=== PATIENT | female | born 1950 | race American Indian/Alaskan Native ===

== ENCOUNTER 2017-01-13 00:59 | Emergency (ER) | payer BC, OTHER ==
[2017-01-13 01:28] VITALS: BP 129/86
[2017-01-13] MEDS ORDERED: Morphine 2 MG/ML Syringe IVPUSH ONE (01:44)
[2017-01-13 01:49] LABS: CHLORIDE,CL 107 mmol/L (101-111); SODIUM,NA 139 mmol/L (135-145)
[2017-01-13] MEDS ORDERED: Ondansetron 4 MG/2 ML SDV IV ONE (01:50)
--- NOTE | 2017-01-13 02:14 | EDM.PDOC ---
ED HPI GENERAL MEDICAL PROBLEM - General Chief Complaint: Chest Pain Stated Complaint: CHEST PAIN [id number] Time Seen by Provider: 01/13/17 01:15 Source of Information: Reports: Patient History Limitations: Reports: No Limitations - History of Present Illness INITIAL COMMENTS - FREE TEXT/NARRATIVE: ED with complaint of SOB cough and chestpain starting 8pm tonight with left sided facial numbness radiating to upper left arm. Relate prior cerebral aneurysm repair with "clips and fistula in 2014. HTN but has not been on medication since surgery in 2014. No fever or chills. Describes chest pain as starting sharp on left lateral radiating to anterior now rating 4/10 as pressure heaviness. No nausea. Non smoker. No hx asthma. Onset: Today (1999) Left Anterior Chest Pain Score (Numeric/FACES): 6 - Related Data Allergies Allergy/AdvReac Type Severity Reaction Status Date / Time codeine Allergy Nausea Verified 01/13/17 01:31 oseltamivir phosphate Allergy Hallucinati Verified 01/13/17 01:31 [From Tamiflu] ons Home Meds: Home Meds Aspirin [Halfprin] 81 mg PO DAILY 09/08/13 [History] Diclofenac Sodium [Voltaren 1%] 1 applic TOP BID PRN 09/08/13 [History] Diltiazem [Tiazac] 180 mg PO DAILY 09/08/13 [History] Meclizine [Antivert] 25 mg PO TID PRN 09/08/13 [History] Multivitamin with Minerals [Multiple Vitamin] 1 tab PO DAILY 09/08/13 [History] Omeprazole 20 mg PO DAILY 09/08/13 [History] Cetirizine HCl [Zyrtec] 10 mg PO DAILY PRN 01/05/14 [History] Ranitidine HCl 150 mg PO BID 01/06/14 [History] Past Medical History Cardiovascular History: Reports: Aneurysm, High Cholesterol, Hypertension - Past Surgical History Other Cardiovascular Surgeries/Procedures: angio seal Other Neurological Surgeries/Procedures: Craniotomy- November 2014 Social & Family History - Tobacco Use Smoking Status *Q: Former Smoker Years of Tobacco use: 40 Used Tobacco, but Quit: No Second Hand Smoke Exposure: No - Caffeine Use Caffeine Use: Reports: Soda - Alcohol Use Days Per Week of Alcohol Use: 0 - Recreational Drug Use Recreational Drug Use: No ED ROS GENERAL - Review of Systems Review Of Systems: See Below Constitutional: Reports: No Symptoms HEENT: Reports: No Symptoms Respiratory: Reports: Shortness of Breath, Cough Cardiovascular: Reports: Chest Pain GI/Abdominal: Reports: No Symptoms : Reports: No Symptoms Musculoskeletal: Reports: No Symptoms Skin: Reports: No Symptoms Neurological: Reports: No Symptoms ED EXAM, NEURO - Physical Exam Exam: See Below Exam Limited By: No Limitations General Appearance: Alert, Anxious Eye Exam: Bilateral Eye: EOMI, PERRL (4mm) Ears: Normal External Exam, Normal TMs Nose: Normal Inspection Throat/Mouth: Normal Inspection Head Exam: Atraumatic, Normocephalic Neck: Normal Inspection, Full Range of Motion. No: Lymphadenopathy (L), Lymphadenopathy (R) Respiratory/Chest: No Respiratory Distress, Lungs Clear, Normal Breath Sounds, Other Cardiovascular: Normal Peripheral Pulses, Regular Rate, Rhythm GI/Abdominal: Normal Bowel Sounds, Soft, Non-Tender Neurological: Alert, Normal Mood/Affect, Normal Plantar Flexion, Normal Gait, Normal Reflexes, Oriented x 3, Other (decreased facial sensation left cheeck and loer lip, left chin, appearance of slight facial droop corner of left mouth , though no family available to compare. sppech generally clear. extremity strength equal without drift. ). No: CN II-XII Intact, No Motor/Sensory Deficits EKG INTERPRETATION Rhythm: NSR Course - Vital Signs Last Recorded V/S: Last Vital Signs Temp 97.1 F 01/13/17 01:12 Pulse 72 01/13/17 01:12 Resp 20 01/13/17 01:12 BP 129/86 01/13/17 01:12 Pulse Ox 100 01/13/17 01:12 - Orders/Labs/Meds Orders: Active Orders 24 hr Category Date Time Status EKG 12 Lead [EKG Documentation Completion] [RC] URGENT Care 01/13/17 01:01 Active Labs: Laboratory Tests 01/13/17 01/13/17 01/13/17 Range/Units 01:15 01:15 01:15 WBC 7.3 (5.0-10.0) 10^3/uL RBC 4.47 (4.2-5.4) 10^6/uL Hgb 13.4 (12.0-16.0) g/dL Hct 41.6 (37.0-47.0) % MCV 93.1 (80-100) fL MCH 30.0 (27.0-34.0) pg MCHC 32.2 L (33.0-35.0) g/dL Plt Count 207 (150-450) 10^3/uL Neut % (Auto) 41.6 L (42.2-75.2) % Lymph % (Auto) 47.7 (20.5-50.1) % [place] % (Auto) 9.0 H (2-8) % Eos % (Auto) 1.6 (1.0-3.0) % Baso % (Auto) 0.1 (0.0-1.0) % PT (9.0-12.0) SEC INR (0.9-1.2) D-Dimer, Quantitative 275 (0-400) ng/mL Sodium 139 (135-145) mmol/L Potassium 4.2 (3.6-5.0) mmol/L Chloride 107 (101-111) mmol/L Carbon Dioxide 26.0 (21.0-31.0) mmol/L Anion Gap 10.2 BUN 15 (7-18) mg/dL Creatinine 0.7 (0.6-1.3) mg/dL Est Cr Clr Drug Dosing 71.29 mL/min Estimated GFR (MDRD) > 60 BUN/Creatinine Ratio 21.42 Glucose 94 (74-105) mg/dL POC Glucose (70-105) mg/dl Calcium 9.5 (8.4-10.2) mg/dl Total Bilirubin 0.3 (0.2-1.0) mg/dL AST 23 (10-42) IU/L ALT 19 (10-60) IU/L Alkaline Phosphatase 70 (42-121) IU/L CK-MB (CK-2) (0.4-4.7) ng/mL Troponin I < 0.02 (0.00-0.02) ng/ml B-Natriuretic Peptide 11 (0-100) pg/ml Total Protein 7.1 (6.7-8.2) g/dl Albumin 3.9 (3.2-5.5) g/dl Globulin 3.2 Albumin/Globulin Ratio 1.22 Amylase 41 (28-100) U/L Lipase 23 (22-51) U/L Urine Color (YELLOW) Urine Appearance (CLEAR) Urine pH (5.0-9.0) Ur Specific [place] (1.005-1.030) Urine Protein (NEGATIVE) Urine Glucose (UA) (NEGATIVE) Urine Ketones (NEGATIVE) Urine Occult Blood (NEGATIVE) Urine Nitrite (NEGATIVE) Urine Bilirubin (NEGATIVE) Urine Urobilinogen (0.2-1.0) mg/dL Ur Leukocyte Esterase (NEGATIVE) Urine RBC /HPF Urine WBC (0-5/HPF) /HPF Ur Epithelial Cells /HPF Urine Bacteria (0-FEW/HPF) /HPF 01/13/17 01/13/17 01/13/17 Range/Units 01:15 01:15 02:07 WBC (5.0-10.0) 10^3/uL RBC (4.2-5.4) 10^6/uL Hgb (12.0-16.0) g/dL Hct (37.0-47.0) % MCV (80-100) fL MCH (27.0-34.0) pg MCHC (33.0-35.0) g/dL Plt Count (150-450) 10^3/uL Neut % (Auto) (42.2-75.2) % Lymph % (Auto) (20.5-50.1) % [place] % (Auto) (2-8) % Eos % (Auto) (1.0-3.0) % Baso % (Auto) (0.0-1.0) % PT 9.9 (9.0-12.0) SEC INR 1.0 (0.9-1.2) D-Dimer, Quantitative (0-400) ng/mL Sodium (135-145) mmol/L Potassium (3.6-5.0) mmol/L Chloride (101-111) mmol/L Carbon Dioxide (21.0-31.0) mmol/L Anion Gap BUN (7-18) mg/dL Creatinine (0.6-1.3) mg/dL Est Cr Clr Drug Dosing mL/min Estimated GFR (MDRD) BUN/Creatinine Ratio Glucose (74-105) mg/dL POC Glucose 87 (70-105) mg/dl Calcium (8.4-10.2) mg/dl Total Bilirubin (0.2-1.0) mg/dL AST (10-42) IU/L ALT (10-60) IU/L Alkaline Phosphatase (42-121) IU/L CK-MB (CK-2) 1.70 (0.4-4.7) ng/mL Troponin I (0.00-0.02) ng/ml B-Natriuretic Peptide (0-100) pg/ml Total Protein (6.7-8.2) g/dl Albumin (3.2-5.5) g/dl Globulin Albumin/Globulin Ratio Amylase (28-100) U/L Lipase (22-51) U/L Urine Color (YELLOW) Urine Appearance (CLEAR) Urine pH (5.0-9.0) Ur Specific [place] (1.005-1.030) Urine Protein (NEGATIVE) Urine Glucose (UA) (NEGATIVE) Urine Ketones (NEGATIVE) Urine Occult Blood (NEGATIVE) Urine Nitrite (NEGATIVE) Urine Bilirubin (NEGATIVE) Urine Urobilinogen (0.2-1.0) mg/dL Ur Leukocyte Esterase (NEGATIVE) Urine RBC /HPF Urine WBC (0-5/HPF) /HPF Ur Epithelial Cells /HPF Urine Bacteria (0-FEW/HPF) /HPF 01/13/17 Range/Units 02:18 WBC (5.0-10.0) 10^3/uL RBC (4.2-5.4) 10^6/uL Hgb (12.0-16.0) g/dL Hct (37.0-47.0) % MCV (80-100) fL MCH (27.0-34.0) pg MCHC (33.0-35.0) g/dL Plt Count (150-450) 10^3/uL Neut % (Auto) (42.2-75.2) % Lymph % (Auto) (20.5-50.1) % [place] % (Auto) (2-8) % Eos % (Auto) (1.0-3.0) % Baso % (Auto) (0.0-1.0) % PT (9.0-12.0) SEC INR (0.9-1.2) D-Dimer, Quantitative (0-400) ng/mL Sodium (135-145) mmol/L Potassium (3.6-5.0) mmol/L Chloride (101-111) mmol/L Carbon Dioxide (21.0-31.0) mmol/L Anion Gap BUN (7-18) mg/dL Creatinine (0.6-1.3) mg/dL Est Cr Clr Drug Dosing mL/min Estimated GFR (MDRD) BUN/Creatinine Ratio Glucose (74-105) mg/dL POC Glucose (70-105) mg/dl Calcium (8.4-10.2) mg/dl Total Bilirubin (0.2-1.0) mg/dL AST (10-42) IU/L ALT (10-60) IU/L Alkaline Phosphatase (42-121) IU/L CK-MB (CK-2) (0.4-4.7) ng/mL Troponin I (0.00-0.02) ng/ml B-Natriuretic Peptide (0-100) pg/ml Total Protein (6.7-8.2) g/dl Albumin (3.2-5.5) g/dl Globulin Albumin/Globulin Ratio Amylase (28-100) U/L Lipase (22-51) U/L Urine Color Light yellow (YELLOW) Urine Appearance Clear (CLEAR) Urine pH 7.0 (5.0-9.0) Ur Specific [place] 1.010 (1.005-1.030) Urine Protein Negative (NEGATIVE) Urine Glucose (UA) Negative (NEGATIVE) Urine Ketones Negative (NEGATIVE) Urine Occult Blood Trace-lysed H (NEGATIVE) Urine Nitrite Negative (NEGATIVE) Urine Bilirubin Negative (NEGATIVE) Urine Urobilinogen 0.2 (0.2-1.0) mg/dL Ur Leukocyte Esterase Negative (NEGATIVE) Urine RBC 0-5 /HPF Urine WBC 0-5 (0-5/HPF) /HPF Ur Epithelial Cells Few /HPF Urine Bacteria Occasional (0-FEW/HPF) /HPF Meds: Medications Discontinued Medications Generic Name Dose Route Start Last Admin Trade Name Bebetoq PRN Reason Stop Dose Admin Morphine Sulfate 2 mg 01/13/17 01:44 01/13/17 01:57 Morphine IVPUSH 01/13/17 01:45 2 mg ONETIME ONE Administration Ondansetron HCl 4 mg 01/13/17 01:50 01/13/17 01:54 Zofran IV 01/13/17 01:51 4 mg ONETIME ONE Administration - Radiology Interpretation Free Text/Narrative:: head CT negative CXR no acute process. - Re-Assessments/Exams Free Text/Narrative Re-Assessment/Exam: 01/13/17 06:[address] [facility] neuro. No critical concern. TC consult Dr. Chavira would accept patient if available CT angio. Not vailable at this facility. Dr. Ryan Swisher hospitalist accepting of patient. Tx vial LRAS. Stable. Chest pain localized to left lateral breast. Cough resolved. Respirations easy non labored. Departure - Departure Time of Disposition: 03:30 Disposition: DC/Tfer to Acute Hospital 02 Condition: Undetermined Clinical Impression: Atypical chest pain, Facial numbness, Hx of cerebral aneurysm repair - Discharge Information Referrals: PCP,Unobtain [Primary Care Provider] - Forms: ED Department Discharge - My Orders Last 24 Hours: My Active Orders 01/13/17 01:01 EKG 12 Lead [EKG Documentation Completion] [RC] URGENT - Assessment/Plan Last 24 Hours: My Active Orders 01/13/17 01:01 EKG 12 Lead [EKG Documentation Completion] [RC] URGENT
--- NOTE | 2017-01-16 12:18 | EKG ---
01/13/2017 - ELENA WAGNER - FINDINGS: A 12-lead EKG shows normal sinus rhythm with a heart rate of 66. Right bundle-branch block noted. No significant ST elevation or ST depression noted. [facility] /[id number]
== END 2017-01-13 03:31 ==
LOC: DL.ED 00:59
DX: R07.89 Other chest pain (principal); R20.0 Anesthesia of skin; Z88.5 Allergy status to narcotic agent; Z79.82 Long term (current) use of aspirin; Z79.899 Other long term (current) drug therapy; Z87.891 Personal history of nicotine dependence; Z86.79 Personal history of other diseases of the circulatory system
CPT/HCPCS: 36415; 70450; 71010; 80053; 81001; 82150; 82553; 82962; 83690; 83880; 84484; 85025; 85379; 85610; 93005; 96374; 96375; 99285; J2270; J2405; Q9967

== ENCOUNTER 2017-02-07 12:45 | Emergency (ER) | payer BC, MEDICAID ==
--- NOTE | 2017-02-07 13:04 | EDM.PDOC ---
ED HPI GENERAL MEDICAL PROBLEM - General Chief Complaint: ENT Problem Stated Complaint: SICK X 2 DAYS. Time Seen by Provider: 02/07/17 13:02 Source of Information: Reports: Patient, Old Records, RN, RN Notes Reviewed History Limitations: Reports: No Limitations - History of Present Illness INITIAL COMMENTS - FREE TEXT/NARRATIVE: C/O sudden onset of sore throat, fever, chills, frontal headache, and nausea with vomiting 2 days ago. Today could not keep any food or liquids down without vomiting. Pt is unsure if she was exposed to strep throat or not. Denies neck pain or stiffness, abdominal pain, cough, shortness of breath or chest pain. Onset: Sudden Onset Date: 02/05/17 Duration: Constant Location: Reports: Head, Chest, Other (throat) Quality: Reports: Ache, Burning Severity: Moderate Improves with: Reports: None Worsens with: Reports: None Context: Reports: Sick Contact Associated Symptoms: Reports: No Other Symptoms Treatments [employer] INST[employer]ER: Reports: Aspirin, NSAIDS, Other Medication(s) - Related Data Allergies Allergy/AdvReac Type Severity Reaction Status Date / Time codeine Allergy Nausea Verified 01/13/17 01:31 oseltamivir phosphate Allergy Hallucinati Verified 01/13/17 01:31 [From Tamiflu] ons Home Meds: Home Meds Aspirin [Halfprin] 81 mg PO DAILY 09/08/13 [History] Diltiazem [Tiazac] 180 mg PO DAILY 09/08/13 [History] Meclizine [Antivert] 25 mg PO TID PRN 09/08/13 [History] Omeprazole 20 mg PO DAILY 09/08/13 [History] Past Medical History HEENT History: Reports: Allergic Rhinitis Cardiovascular History: Reports: High Cholesterol, Hypertension Gastrointestinal History: Reports: GERD Neurological History: Reports: Cerebral Aneurysms - Past Surgical History Other Cardiovascular Surgeries/Procedures: angio seal Other Neurological Surgeries/Procedures: Craniotomy- November 2014 Social & Family History - Family History Family Medical History: Noncontributory - Tobacco Use Smoking Status *Q: Former Smoker Years of Tobacco use: 40 Used Tobacco, but Quit: No Second Hand Smoke Exposure: No - Caffeine Use Caffeine Use: Reports: Soda - Alcohol Use Days Per Week of Alcohol Use: 0 - Recreational Drug Use Recreational Drug Use: No - Living Situation & Occupation Living situation: Reports: with Family ED ROS ENT - Review of Systems Review Of Systems: ROS reveals no pertinent complaints other than HPI. ED EXAM, ENT - Physical Exam Exam: See Below Exam Limited By: No Limitations General Appearance: Alert, WD/WN, No Apparent Distress, Other (uncomfortable, but non-toxic appearing) Eye Exam: Bilateral Eye: Normal Inspection Ears: Normal External Exam, Normal Canal, Hearing Grossly Normal, Normal TMs Nose: Normal Inspection, Normal Mucousa, No Blood Mouth/Throat: Normal Gums, Normal Lips, Normal Teeth, Pharyngeal Erythema. No: Tonsillar Exudates Head: Atraumatic, Normocephalic Neck: Normal Inspection, Supple, Non-Tender, Full Range of Motion. No: Lymphadenopathy (L), Lymphadenopathy (R) Respiratory/Chest: No Respiratory Distress, Lungs Clear, Normal Breath Sounds, No Accessory Muscle Use, Chest Non-Tender Cardiovascular: Normal Peripheral Pulses, Regular Rate, Rhythm, No Edema, No Gallop, No JVD, No Murmur, No Rub GI/Abdominal: Normal Bowel Sounds, Soft, Non-Tender, No Distention, No Abnormal Bruit (Female) Exam: Deferred Rectal (Female) Exam: Deferred Back: Normal Inspection Extremities: Normal Inspection, Normal Range of Motion, Non-Tender, No Pedal Edema, Normal Capillary Refill Neurological: Alert, Oriented, CN II-XII Intact, Normal Cognition, Normal Gait, No Motor/Sensory Deficits Psychiatric: Normal Affect, Normal Mood Skin: Warm, Dry, Intact, Normal Color, No Rash Course - Vital Signs Last Recorded V/S: Last Vital Signs Temp 37.0 C 02/07/17 12:50 Pulse 94 02/07/17 12:50 Resp 28 H 02/07/17 12:50 BP 113/70 02/07/17 12:50 Pulse Ox 97 02/07/17 12:50 - Orders/Labs/Meds Orders: Active Orders 24 hr Category Date Time Status Peripheral IV Care [RC] . DIRECTED Care 02/07/17 14:05 Active CULTURE STREP A CONFIRMATION [] Stat Lab 02/07/17 13:00 Results STREP SCRN A RAPID W CULT CONF [] Stat Lab 02/07/17 13:00 Results Sodium Chloride 0.9% [Normal Saline] 1,000 ml Med 02/07/17 14:03 Active IV .BOLUS Sodium Chloride 0.9% [Saline Flush] Med 02/07/17 14:04 Active 10 ml FLUSH ASDIRECTED PRN Peripheral IV Insertion Adult [OM.PC] Stat Oth 02/07/17 14:03 Ordered Medication Orders Sodium Chloride (Normal Saline) 1,000 mls @ 999 mls/hr IV .BOLUS ONE Stop: 02/07/17 15:03 Last Admin: 02/07/17 14:29 Dose: 999 mls/hr Sodium Chloride (Saline Flush) 10 ml FLUSH ASDIRECTED PRN PRN Reason: Keep Vein Open Labs: Laboratory Tests 02/07/17 02/07/17 Range/Units 14:11 14:11 WBC 12.0 H (5.0-10.0) 10^3/uL RBC 4.78 (4.2-5.4) 10^6/uL Hgb 14.2 (12.0-16.0) g/dL Hct 44.4 (37.0-47.0) % MCV 92.9 (80-100) fL MCH 29.7 (27.0-34.0) pg MCHC 32.0 L (33.0-35.0) g/dL Plt Count 203 (150-450) 10^3/uL Neut % (Auto) 79.8 H (42.2-75.2) % Lymph % (Auto) 11.7 L (20.5-50.1) % [place] % (Auto) 8.0 (2-8) % Eos % (Auto) 0.3 L (1.0-3.0) % Baso % (Auto) 0.2 (0.0-1.0) % Sodium 137 (135-145) mmol/L Potassium 4.7 (3.6-5.0) mmol/L Chloride 101 (101-111) mmol/L Carbon Dioxide 26.0 (21.0-31.0) mmol/L Anion Gap 14.7 BUN 14 (7-18) mg/dL Creatinine 0.8 (0.6-1.3) mg/dL Est Cr Clr Drug Dosing 61.35 mL/min Estimated GFR (MDRD) > 60 BUN/Creatinine Ratio 17.50 Glucose 108 H (74-105) mg/dL Calcium 9.9 (8.4-10.2) mg/dl Total Bilirubin 0.8 (0.2-1.0) mg/dL AST 30 (10-42) IU/L ALT 62 H (10-60) IU/L Alkaline Phosphatase 79 (42-121) IU/L Total Protein 8.2 (6.7-8.2) g/dl Albumin 4.1 (3.2-5.5) g/dl Globulin 4.1 Albumin/Globulin Ratio 1.00 Influenza A/B: Negative Rapid Strep: Negative Meds: Medications Generic Name Dose Route Start Last Admin Trade Name Cecil PRN Reason Stop Dose Admin Sodium Chloride 1,000 mls @ 999 mls/hr 02/07/17 14:03 02/07/17 14:29 Normal Saline IV 02/07/17 15:03 999 mls/hr .BOLUS ONE Administration Sodium Chloride 10 ml 02/07/17 14:04 Saline Flush FLUSH ASDIRECTED PRN Keep Vein Open Discontinued Medications Generic Name Dose Route Start Last Admin Trade Name Cecil PRN Reason Stop Dose Admin Ceftriaxone Sodium 1 gm 02/07/17 14:04 02/07/17 14:29 Rocephin IVPUSH 02/07/17 14:05 1 gm ONETIME ONE Administration Ondansetron HCl 4 mg 02/07/17 14:03 02/07/17 14:29 Zofran IV 02/07/17 14:04 4 mg ONETIME ONE Administration Departure - Departure Time of Disposition: 15:04 Disposition: Home, Self-Care 01 Condition: Good Clinical Impression: Pharyngitis Qualifiers: Pharyngitis/tonsillitis etiology: unspecified etiology Qualified Code(s): J02.9 - Acute pharyngitis, unspecified - Discharge Information Instructions: Pharyngitis Forms: ED Department Discharge Additional Instructions: Rx: Promethazine 25mg *Do not drive while under the influence of this medication , may cause drowsiness. Rx: Z-Calixto 250mg Clear liquid diet until nausea resolves, then advance to soft bland diet as tolerated. Follow up in clinic if not improving in 2 days. Return to ER if worse at any time. - My Orders Last 24 Hours: My Active Orders 02/07/17 13:00 CULTURE STREP A CONFIRMATION [RM] Stat STREP SCRN A RAPID W CULT CONF [RM] Stat 02/07/17 14:03 Sodium Chloride 0.9% [Normal Saline] 1,000 ml IV .BOLUS Peripheral IV Insertion Adult [OM.PC] Stat 02/07/17 14:04 Sodium Chloride 0.9% [Saline Flush] 10 ml FLUSH ASDIRECTED PRN 02/07/17 14:05 Peripheral IV Care [RC] . DIRECTED - Assessment/Plan Last 24 Hours: My Active Orders 02/07/17 13:00 CULTURE STREP A CONFIRMATION [] Stat STREP SCRN A RAPID W CULT CONF [RM] Stat 02/07/17 14:03 Sodium Chloride 0.9% [Normal Saline] 1,000 ml IV .BOLUS Peripheral IV Insertion Adult [OM.PC] Stat 02/07/17 14:04 Sodium Chloride 0.9% [Saline Flush] 10 ml FLUSH ASDIRECTED PRN 02/07/17 14:05 Peripheral IV Care [RC] . DIRECTED
[2017-02-07] MEDS ORDERED: Sodium Chloride 0.9% 1,000 ML IV ONE (14:03)
[2017-02-07] MEDS ORDERED: Ondansetron 4 MG/2 ML SDV IV ONE (14:03)
[2017-02-07] MEDS ORDERED: Sodium Chloride 0.9% 10 ML Syringe FLUSH PRN (14:04)
[2017-02-07] MEDS ORDERED: cefTRIAXone 1 GM Vial IVPUSH ONE (14:04)
[2017-02-07 14:36] LABS: CHLORIDE,CL 101 mmol/L (101-111); SODIUM,NA 137 mmol/L (135-145)
[2017-02-07 15:17] VITALS: BP 97/52
== END 2017-02-07 15:28 | disposition home or self-care (01) ==
LOC: DL.ED 12:45
DX: J02.9 Acute pharyngitis, unspecified (principal); I10 Essential (primary) hypertension; E78.00 Pure hypercholesterolemia, unspecified; Z87.891 Personal history of nicotine dependence; Z79.82 Long term (current) use of aspirin; Z79.899 Other long term (current) drug therapy; Z88.5 Allergy status to narcotic agent; Z88.8 Allergy status to other drugs, medicaments and biological substances
CPT/HCPCS: 36415; 80053; 85025; 87081; 87430; 87804; 96361; 96374; 96375; 99284; J0696; J2405; J7030

== ENCOUNTER 2017-08-18 23:18 | Emergency (ER) | payer BC, MEDICAID ==
[2017-08-18 23:32] VITALS: BP 142/70
[2017-08-19] MEDS ORDERED: Promethazine 25 MG/ML SDV IM ONE (00:31)
--- NOTE | 2017-08-19 00:34 | EDM.PDOC ---
ED HPI GENERAL MEDICAL PROBLEM - General Chief Complaint: Gastrointestinal Problem Stated Complaint: SOB/DIZZY [id number] Time Seen by Provider: 08/19/17 00:32 Source of Information: Reports: Patient History Limitations: Reports: No Limitations - History of Present Illness INITIAL COMMENTS - FREE TEXT/NARRATIVE: gives h/o dizziness take meclizine, been dizzy all day on-off without CP/SOB/ HIRSCH. took mecliz and vomited and still dizzy. - Related Data Allergies Allergy/AdvReac Type Severity Reaction Status Date / Time codeine Allergy Nausea Verified 01/13/17 01:31 oseltamivir phosphate Allergy Hallucinati Verified 01/13/17 01:31 [From Tamiflu] ons Home Meds: Home Meds Aspirin [Halfprin] 81 mg PO DAILY 09/08/13 [History] Diltiazem [Tiazac] 180 mg PO DAILY 09/08/13 [History] Meclizine [Antivert] 25 mg PO TID PRN 09/08/13 [History] Omeprazole 20 mg PO DAILY 09/08/13 [History] Past Medical History HEENT History: Reports: Allergic Rhinitis Cardiovascular History: Reports: High Cholesterol, Hypertension Gastrointestinal History: Reports: GERD Neurological History: Reports: Cerebral Aneurysms - Past Surgical History Other Cardiovascular Surgeries/Procedures: angio seal Other Neurological Surgeries/Procedures: Craniotomy- November 2014 Social & Family History - Family History Family Medical History: Noncontributory - Tobacco Use Smoking Status *Q: Never Smoker - Caffeine Use Caffeine Use: Reports: Soda - Living Situation & Occupation Living situation: Reports: with Family ED ROS GENERAL - Review of Systems Review Of Systems: ROS reveals no pertinent complaints other than HPI. ED EXAM, DIZZINESS - Physical Exam Exam: See Below Exam Limited By: No Limitations General Appearance: Alert, WD/WN, Mild Distress, Other (vertigo) Eye Exam: Bilateral Eye: PERRL (pupils ess ER @ 4mm) Ears: Hearing Grossly Normal, Normal TMs Throat/Mouth: Normal Voice, No Airway Compromise Head Exam: Atraumatic Neck: Non-Tender, Full Range of Motion Respiratory/Chest: No Respiratory Distress, Lungs Clear Cardiovascular: Regular Rate, Rhythm GI/Abdominal: Soft, Non-Tender Neurological: Alert, Normal Mood/Affect, Normal Gait, No Motor/Sensory Deficits , Oriented x 3 Psychiatric: Flat Affect Skin Exam: Warm, Dry, Normal Color Course - Vital Signs Last Recorded V/S: Last Vital Signs Temp 36.3 C 08/18/17 23:31 Pulse 70 08/18/17 23:31 Resp 14 08/18/17 23:31 BP 142/70 H 08/18/17 23:31 Pulse Ox 100 08/18/17 23:31 - Orders/Labs/Meds Meds: Medications Discontinued Medications Generic Name Dose Route Start Last Admin Trade Name Cecil PRN Reason Stop Dose Admin Ondansetron HCl 4 mg 08/19/17 02:03 08/19/17 02:12 Zofran Odt PO 08/19/17 02:04 4 mg ONETIME ONE Administration Promethazine HCl 25 mg 08/19/17 00:31 08/19/17 01:10 Phenergan IM 08/19/17 00:32 25 mg ONETIME ONE Administration - Re-Assessments/Exams Free Text/Narrative Re-Assessment/Exam: 08/19/17 02:03 re-exam; s/p IM phenergan = much better with dizziness but still little nauseous. Departure - Departure Time of Disposition: 02:10 Disposition: Home, Self-Care 01 Condition: Good Clinical Impression: Labyrinthine dysfunction Qualifiers: Laterality: bilateral Qualified Code(s): H83.2X3 - Labyrinthine dysfunction, bilateral - Discharge Information Instructions: Dizziness, [id number] Referrals: Lori Ibrahim LOOPING INSPECTOR [Primary Care Provider] - Forms: ED Department Discharge Additional Instructions: 1) continue present meds 2) recheck if there is any change or concern
[2017-08-19] MEDS ORDERED: Ondansetron 4 MG Tab.DIS PO ONE (02:03)
== END 2017-08-19 02:13 | disposition home or self-care (01) ==
LOC: DL.ED 23:18
DX: H83.2X3 Labyrinthine dysfunction, bilateral (principal); I10 Essential (primary) hypertension; Z88.5 Allergy status to narcotic agent; Z88.8 Allergy status to other drugs, medicaments and biological substances; Z79.82 Long term (current) use of aspirin
CPT/HCPCS: 96372; 99283; A9270; J2550

== ENCOUNTER 2018-02-17 00:08 | Observation (INO) | payer BC, MEDICARE, OTHER ==
[2018-02-17] MEDS ORDERED: Cyclobenzaprine 10 MG Tab PO ONE (00:40)
[2018-02-17] MEDS ORDERED: Acetaminophen 500 MG Tab PO ONE (00:41)
--- NOTE | 2018-02-17 02:14 | EDM.PDOC ---
ED HPI GENERAL MEDICAL PROBLEM - General Chief Complaint: Back Pain or Injury Stated Complaint: HORRIBLE BACK PAIN [id number] Time Seen by Provider: 02/17/18 01:15 Source of Information: Reports: Patient History Limitations: Reports: No Limitations - History of Present Illness INITIAL COMMENTS - FREE TEXT/NARRATIVE: C/O severe right lower back pain. Started around 520 tonight while driving, No injury, No prior hx of low back pain, No different activities today. has not tried anything to relieve pain. Worse with any movement. Unable to find position of comfort, No weakness, numbness or loss of bladder control or stool incontinence. Radiation to anterior groin area with movement. Right Lower Back Pain Score (Numeric/FACES): 9 - Related Data Allergies Allergy/AdvReac Type Severity Reaction Status Date / Time codeine Allergy Nausea Verified 02/17/18 00:16 oseltamivir phosphate Allergy Hallucinati Verified 02/17/18 00:16 [From Tamiflu] ons Home Meds: Home Meds Aspirin [Halfprin] 81 mg PO DAILY 09/08/13 [History] Diltiazem [Tiazac] 180 mg PO DAILY 09/08/13 [History] Meclizine [Antivert] 25 mg PO TID PRN 09/08/13 [History] Omeprazole 20 mg PO DAILY 09/08/13 [History] Past Medical History HEENT History: Reports: Allergic Rhinitis Cardiovascular History: Reports: High Cholesterol, Hypertension Gastrointestinal History: Reports: GERD Neurological History: Reports: Cerebral Aneurysms - Past Surgical History Other Cardiovascular Surgeries/Procedures: angio seal Other Neurological Surgeries/Procedures: Craniotomy- November 2014 Social & Family History - Family History Family Medical History: Noncontributory - Tobacco Use Smoking Status *Q: Never Smoker Second Hand Smoke Exposure: No - Caffeine Use Caffeine Use: Reports: Soda - Recreational Drug Use Recreational Drug Use: No - Living Situation & Occupation Living situation: Reports: with Family ED ROS GENERAL - Review of Systems Review Of Systems: ROS reveals no pertinent complaints other than HPI. ED EXAM,LOWER BACK PAIN/INJURY - Physical Exam Exam: See Below Exam Limited By: No Limitations General Appearance: Alert, Moderate Distress Eye Exam: Bilateral Eye: EOMI Ears: Normal External Exam, Hearing Grossly Normal Nose: Normal Inspection Throat/Mouth: Normal Voice Head: Atraumatic, Normocephalic Neck: Full Range of Motion Respiratory/Chest: No Respiratory Distress, Lungs Clear Cardiovascular: Regular Rate, Rhythm GI/Abdominal: Normal Bowel Sounds, Soft Back Exam: Muscle Spasm (right lower), Paraspinal Tenderness (right lumbar). No : Full Range of Motion, Vertebral Tenderness Extremities: Normal Inspection Neurological: Alert, No Motor/Sensory Deficits, Oriented x 3, Straight Leg Raise (R), Difficulty Walking. No: Abnormal Sensation, Saddle Anesthesia Psychiatric: Normal Affect Skin Exam: Warm, Dry, Intact, Normal Color Course - Vital Signs Last Recorded V/S: Last Vital Signs Temp 97 F 02/17/18 00:13 Pulse 96 02/17/18 00:13 Resp 18 02/17/18 00:13 BP 122/59 L 02/17/18 00:13 Pulse Ox 96 02/17/18 00:13 - Orders/Labs/Meds Orders: Active Orders 24 hr Category Date Time Status Lumbar Spine wo Cont [CT] Urgent Exams 02/17/18 02:00 Taken CBC WITH AUTO DIFF [HEME] Stat Lab 02/17/18 03:14 Ordered CMP [COMPREHENSIVE METABOLIC PN,CMP] [CHEM] Stat Lab 02/17/18 03:14 Ordered Meds: Medications Discontinued Medications Generic Name Dose Route Start Last Admin Trade Name Cecil PRN Reason Stop Dose Admin Acetaminophen 500 mg 02/17/18 00:41 02/17/18 00:45 Tylenol Extra Strength PO 02/17/18 00:42 500 mg ONETIME ONE Administration Cyclobenzaprine HCl 5 mg 02/17/18 00:40 02/17/18 00:45 Flexeril PO 02/17/18 00:41 5 mg ONETIME ONE Administration - Radiology Interpretation Free Text/Narrative:: [facility] Final Radiology Report Call: [phone] assistance Online chat: [email or web address] Name: ELENA WAGNER Age: 67Years F Date: 02/17/2018 SSN: -- : 1950 Study: CT SPINE LUMBAR WO Requesting Physician: DANYA LAM Images: 450 Addl Studies: Provided Clinical History: Contrast: Without Contrast Medium: Contrast Amount: Contrast Method: Page 1 of 2 EXAM: CT Lumbar Spine Without Contrast EXAM DATE/TIME: 02/17/2018 2:23 AM CLINICAL HISTORY: 67 years old, female; Signs and symptoms; Other: Severe pain--no injury, HX degerative disc and bulging discs at upper levels TECHNIQUE: Axial computed tomography images of the lumbar spine without intravenous contrast. All CT scans at this facility use at least one of these dose optimization techniques: automated exposure control; mA and/or kV adjustment per patient size (includes targeted exams where dose is matched to clinical indication); or iterative reconstruction. Coronal and sagittal reformatted images were created and reviewed. COMPARISON: No relevant prior studies available. FINDINGS: Vertebrae: No acute fracture. Vertebral body heights preserved. Alignment is unremarkable. Discs/Spinal canal/Neural foramina: Unremarkable for age. No acute findings. Soft tissues: Unremarkable. IMPRESSION: No acute findings. Thank you for allowing us to participate in the care of your patient. ELENA WAGNER Accession - Re-Assessments/Exams Free Text/Narrative Re-Assessment/Exam: States very sensitive to medication. Requests nothing stronger than tylenol , agreeable to muscle relaxant. 0215 mild improvment. Continued pain with minimal movement 02/17/18 03:15Tx to [facility] [place] with assist of 2. 02/17/18 03:[address] Rodriguez, [facility] Hospitalist, observation admission. Departure - Departure Time of Disposition: 03:23 Disposition: Refer to Observation Clinical Impression: Spasm of muscle of lower back Sciatica Qualifiers: Laterality: right Qualified Code(s): M54.31 - Sciatica, right side - Discharge Information *PRESCRIPTION DRUG MONITORING PROGRAM REVIEWED*: Yes *COPY OF PRESCRIPTION DRUG MONITORING REPORT IN PATIENT SARAH: No Forms: ED Department Discharge - My Orders Last 24 Hours: My Active Orders 02/17/18 02:00 Lumbar Spine wo Cont [CT] Urgent 02/17/18 03:14 CBC WITH AUTO DIFF [HEME] Stat CMP [COMPREHENSIVE METABOLIC PN,CMP] [CHEM] Stat - Assessment/Plan Last 24 Hours: My Active Orders 02/17/18 02:00 Lumbar Spine wo Cont [CT] Urgent 02/17/18 03:14 CBC WITH AUTO DIFF [HEME] Stat CMP [COMPREHENSIVE METABOLIC PN,CMP] [CHEM] Stat
[2018-02-17 03:42] LABS: ANION GAP 12.9; CHLORIDE,CL 106 mmol/L (101-111); SODIUM,NA 138 mmol/L (135-145)
[2018-02-17] MEDS ORDERED: Bisacodyl 5 MG Tab PO PRN (04:18)
[2018-02-17] MEDS ORDERED: Ondansetron 4 MG/2 ML SDV IVPUSH PRN (04:18)
[2018-02-17] MEDS ORDERED: Docusate Sodium 100 MG Cap PO PRN (04:18)
[2018-02-17] MEDS ORDERED: Promethazine 25 MG/ML SDV IM PRN (04:18)
[2018-02-17] MEDS ORDERED: Ondansetron 4 MG Tab.DIS PO PRN (04:18)
[2018-02-17] MEDS ORDERED: Promethazine 25 MG Tab PO PRN (04:18)
[2018-02-17] MEDS ORDERED: Meclizine 12.5 MG Tab PO PRN (04:27)
[2018-02-17] MEDS ORDERED: Lactated Ringers 1,000 ML IV SCH (04:30)
--- NOTE | 2018-02-17 04:36 | PCM.HP ---
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 Patient reports that she was driving between 5pm and 6pm last night when she started feeling sharp 9/10 right lower back pain that radiated to the front and into her right groin. She reports that pain is exacerbated by movement and improves by laying still. Comes down to 7/10. Denies history of trauma, recent lifting or moving heavy objects, or fall. She denies prior episodes. She reports that tylenol and flexeril did not help improve her pain in the ED. Reports that she is allergic to ibuprofen, codeine, and tamiflu. She denies fevers, chills, weight changes, abdominal pain, nausea, vomiting, constipation, diarrhea, melena, hematochezia, dysuria, hematuria, or malodorous urine. She denies diaphoresis, chest pain, shortness of breath or pain down the legs. Onset of Symptoms: Reports: Today, Sudden Duration of Symptoms: Reports: Hour(s):, Constant Location: Reports: Back Quality: Reports: Sharp Severity: Severe Improves with: Reports: Immobilization Worsens with: Reports: Movement Context: Reports: Other (Driving) Associated Symptoms: Reports: Other (radiates to the right groin. ) Right Lower Back Pain Score (Numeric/FACES): 9 - Related Data Allergies/Adverse Reactions: Allergies Allergy/AdvReac Type Severity Reaction Status Date / Time ibuprofen Allergy Intermediate Swelling Verified 02/17/18 04:18 codeine Allergy Nausea Verified 02/17/18 00:16 oseltamivir phosphate Allergy Hallucinati Verified 02/17/18 00:16 [From Tamiflu] ons Home Medications: Home Meds Aspirin [Halfprin] 81 mg PO DAILY 09/08/13 [History] Diltiazem [Tiazac] 180 mg PO DAILY 09/08/13 [History] Meclizine [Antivert] 25 mg PO TID PRN 09/08/13 [History] Omeprazole 20 mg PO DAILY 09/08/13 [History] Past Medical History HEENT History: Reports: Allergic Rhinitis Cardiovascular History: Reports: High Cholesterol, Hypertension Gastrointestinal History: Reports: GERD Musculoskeletal History: Reports: Neck Pain, Chronic Neurological History: Reports: Cerebral Aneurysms Dermatologic History: Reports: Other (See Below) Other Dermatologic History: rash above eyes - Past Surgical History Other Cardiovascular Surgeries/Procedures: angio seal GI Surgical History: Reports: Lysis of Adhesions Other Neurological Surgeries/Procedures: Craniotomy- November 2014 Musculoskeletal Surgical History: Reports: Other (See Below) ("Orthopedic" surgeries) Social & Family History - Family History Family Medical History: Noncontributory Oncologic: Reports: Breast, Ovarian (Paternal aunt with breat cancer and another with ovarian. Mother with breast cancer.) - Tobacco Use Smoking Status *Q: Never Smoker Years of Tobacco use: 13 Used Tobacco, but Quit: Yes Month/Year Tobacco Last Used: 11/2014 Second Hand Smoke Exposure: No - Caffeine Use Caffeine Use: Reports: Soda - Recreational Drug Use Recreational Drug Use: No - Living Situation & Occupation Living situation: Reports: with Family H&P Review of Systems - Review of Systems: Review Of Systems: See Below General: Reports: No Symptoms HEENT: Reports: No Symptoms Pulmonary: Reports: No Symptoms Cardiovascular: Reports: No Symptoms Gastrointestinal: Reports: No Symptoms Genitourinary: Reports: No Symptoms Musculoskeletal: Reports: Back Pain (Radiates to groin) Skin: Reports: No Symptoms Psychiatric: Reports: No Symptoms Neurological: Reports: No Symptoms Hematologic/Lymphatic: Reports: No Symptoms Immunologic: Reports: No Symptoms Exam - Exam Exam: See Below - Vital Signs Vital Signs: Last Vital Signs Temp 97 F 02/17/18 00:13 Pulse 96 02/17/18 00:13 Resp 18 02/17/18 00:13 BP 122/59 L 02/17/18 00:13 Pulse Ox 96 02/17/18 00:13 Weight: 157 lb 1.6 oz - Exam Physical Exam Comments:: General: Alert and oriented to place, time and person Head: atraumatic and normocephalic. Eyes: PERRLA, EOMI, anicteric, Ear, Nose and Throat: No gross abnormality found Neck: Supple Respiratory/Chest: CTAB, no wheezes, crackles, rales, or rhonci; Good air entry bilaterally. No increased work of breathing CVS: RRR, no murmur, rub, or gallop, peripheral pulses palpable. Gastrointestinal/Abd: Soft, non-distended, non-tender. Normal bowel sounds. No organomegaly. Back: Right lower back tenderness to palpation, no paraspinal tenderness or midline tenderness, negative straight leg raise. Skin: No acute rashes noted. Neuro: Grossly non-focal. No cranial nerve abnormality. Moves all extremities. Psych: Alert and oriented to place time and person. Musculoskeletal: No abnormality noted. Ext: No edema, no ulcers, no tenderness, no size differences, : No costovertebral angle tenderness - Patient Data Lab Results Last 24 hrs: Laboratory Results - last 24 hr 02/17/18 02/17/18 Range/Units 03:15 03:15 WBC 7.9 (5.0-10.0) 10^3/uL RBC 4.41 (4.2-5.4) 10^6/uL Hgb 13.4 (12.0-16.0) g/dL Hct 41.0 (37.0-47.0) % MCV 93.0 (80-100) fL MCH 30.4 (27.0-34.0) pg MCHC 32.7 L (33.0-35.0) g/dL Plt Count 207 (150-450) 10^3/uL Neut % (Auto) 64.3 (42.2-75.2) % Lymph % (Auto) 27.3 (20.5-50.1) % Rogers % (Auto) 6.9 (2-8) % Eos % (Auto) 1.4 (1.0-3.0) % Baso % (Auto) 0.1 (0.0-1.0) % Sodium 138 (135-145) mmol/L Potassium 3.9 (3.6-5.0) mmol/L Chloride 106 (101-111) mmol/L Carbon Dioxide 23.0 (21.0-31.0) mmol/L Anion Gap 12.9 BUN 15 (7-18) mg/dL Creatinine 0.8 (0.6-1.3) mg/dL Est Cr Clr Drug Dosing 60.54 mL/min Estimated GFR (MDRD) > 60 BUN/Creatinine Ratio 18.75 Glucose 96 (74-105) mg/dL Calcium 9.5 (8.4-10.2) mg/dl Total Bilirubin 0.5 (0.2-1.0) mg/dL AST 21 (10-42) IU/L ALT 18 (10-60) IU/L Alkaline Phosphatase 97 (42-121) IU/L Total Protein 7.1 (6.7-8.2) g/dl Albumin 3.9 (3.2-5.5) g/dl Globulin 3.2 Albumin/Globulin Ratio 1.22 Result Diagrams: 02/17/18 03:15 02/17/18 03:15 - Problem List (1) Right flank pain SNOMED Code(s): 776887901 ICD Code: R10.9 - UNSPECIFIED ABDOMINAL PAIN Status: Acute Current Visit : Yes Problem List Initiated/Reviewed/Updated: Yes Orders Last 24hrs: Active Orders 24 hr Category Date Time Status Patient Status [ADT] Routine ADT 02/17/18 04:18 Ordered Oxygen Therapy [RC] PRN Care 02/17/18 04:18 Ordered VTE/DVT Education [RC] PER UNIT ROUTINE Care 02/17/18 04:18 Ordered Vital Signs [RC] Q4H Care 02/17/18 04:18 Ordered Clear Liquid Diet [DIET] Diet 02/17/18 Breakfast Ordered Lumbar Spine wo Cont [CT] Urgent Exams 02/17/18 02:00 Taken UA W/MICROSCOPIC [URIN] Stat Lab 02/17/18 04:18 Ordered Acetaminophen [Tylenol] Med 02/17/18 04:18 Ordered 650 mg PO Q6H PRN Bisacodyl [Dulcolax] Med 02/17/18 04:18 Ordered 5 mg PO DAILY PRN Diltiazem [Tiazac] Med 02/17/18 09:00 Ordered 180 mg PO DAILY Docusate Sodium [Colace] Med 02/17/18 04:18 Ordered 100 mg PO BID PRN Docusate Sodium/Sennosides [Senna Plus] Med 02/17/18 04:18 Ordered 1 tab PO BEDTIME PRN Heparin Sodium Med 02/17/18 06:00 Ordered 5,000 units SUBCUT Q8HR Lactated Ringers @ 125 MLS/HR(1000ml) Med 02/17/18 04:30 Ordered Lactated Ringers [Ringers, Lactated] 1,000 ml IV ASDIRECTED Meclizine [Antivert] Med 02/17/18 04:27 Ordered 25 mg PO TID PRN Omeprazole Med 02/17/18 09:00 Ordered 20 mg PO DAILY Ondansetron [Zofran ODT] Med 02/17/18 04:18 Ordered 4 mg PO Q4H PRN Ondansetron [Zofran] Med 02/17/18 04:18 Ordered 4 mg IVPUSH Q4H PRN Polyethylene Glycol 3350 [MiraLAX] Med 02/17/18 04:18 Ordered 17 gm PO DAILY PRN Promethazine [Phenergan] Med 02/17/18 04:18 Ordered 25 mg PO Q6H PRN Promethazine [Phenergan] Med 02/17/18 04:18 Ordered 6.25 mg IM Q6H PRN Resuscitation Status Routine Resus Stat 02/17/18 04:18 Ordered Medication Orders Acetaminophen (Tylenol) 650 mg PO Q6H PRN PRN Reason: Pain Bisacodyl (Dulcolax) 5 mg PO DAILY PRN PRN Reason: Constipation Docusate Sodium (Colace) 100 mg PO BID PRN PRN Reason: Constipation Heparin Sodium (Porcine) (Heparin Sodium) 5,000 units SUBCUT Q8HR COUNTS INCLUDE 234 BEDS AT THE [facility] Lactated Ringer's (Ringers, Lactated) 1,000 mls @ 125 mls/hr IV ASDIRECTED [facility]GORZ Stop: 02/17/18 20:31 Non-Formulary Medication (Diltiazem [Tiazac]) 180 mg PO DAILY COUNTS INCLUDE 234 BEDS AT THE [facility] Non-Formulary Medication (Meclizine [Antivert]) 25 mg PO TID PRN PRN Reason: Dizziness Omeprazole (Omeprazole) 20 mg PO DAILY COUNTS INCLUDE 234 BEDS AT THE [facility] Ondansetron HCl (Zofran Odt) 4 mg PO Q4H PRN PRN Reason: nausea, able to take PO Ondansetron HCl (Zofran) 4 mg IVPUSH Q4H PRN PRN Reason: Nausea/Vomiting Polyethylene Glycol (Miralax) 17 gm PO DAILY PRN PRN Reason: Constipation Promethazine HCl (Phenergan) 25 mg PO Q6H PRN PRN Reason: nausea, able to take PO Promethazine HCl (Phenergan) 6.25 mg IM Q6H PRN PRN Reason: Nausea/Vomiting Senna/Docusate Sodium (Senna Plus) 1 tab PO BEDTIME PRN PRN Reason: Constipation Assessment/Plan Comment:: #Right flank/low back pain: Patient with 9/10 right low back/flank pain that radiates anteriorly to the right groin. No trauma. Started while she was driving. Worsens with movement. No dysuria or hematuria. No alarm symptoms. No systemic signs or symptoms. Per ED provider, CT scan is negative. - Pain management with tylenol and lidocaine patch - Obtain UA. - Follow up on formal CT report. - If CT and UA are both negative, will obtain MRI lumbar spine #
[2018-02-17] MEDS: Lidocaine 5% 700 MG Patch TOP SCH (06:11)
[2018-02-17] MEDS: Heparin Sodium 5,000 Units/ML Vial SUBCUT SCH ×3 (06:22→21:54)
[2018-02-17] MEDS: Omeprazole 20 MG Cap.CR **OWN MED PO SCH (07:31)
[2018-02-17] MEDS ORDERED: Diltiazem 180 MG Cap.CD PO SCH (09:00)
[2018-02-17] MEDS: Acetaminophen 325 MG Tab PO PRN (13:24)
[2018-02-17] MEDS ORDERED: Cyclobenzaprine 10 MG Tab PO PRN (14:59)
[2018-02-17] MEDS: Polyethylene Glycol 3350 Powder 17 GM Packet PO PRN (20:12)
[2018-02-18] MEDS: Lidocaine 5% 700 MG Patch TOP SCH (05:08)
[2018-02-18] MEDS: Omeprazole 20 MG Cap.CR **OWN MED PO SCH (05:18)
[2018-02-18] MEDS: Heparin Sodium 5,000 Units/ML Vial SUBCUT SCH ×3 (05:20→21:13)
[2018-02-18] MEDS: DILTIAZEM HCL 120 MG PO SCH (08:43)
--- NOTE | 2018-02-18 09:14 | PCM.PN ---
- General Info Date of Service: 02/18/18 Admission Dx/Problem (Free Text): Admission Diagnosis/Problem Admission Diagnosis/Problem Back pain Subjective Update: No acute events overnight. She reports that she continues to get right lower back spasms with ambulation and also has 6/10 pain while at rest. When she gets the spasm with activity, she almost falls and has to catch herself. Walker has been helpful. Had MRI this morning. Functional Status: Reports: Pain Controlled, Tolerating Diet Pain Score: 6 - Review of Systems General: Reports: No Symptoms HEENT: Reports: No Symptoms Pulmonary: Reports: No Symptoms Cardiovascular: Reports: No Symptoms Gastrointestinal: Reports: Constipation Genitourinary: Reports: No Symptoms Musculoskeletal: Reports: Back Pain Skin: Reports: No Symptoms Neurological: Reports: No Symptoms Psychiatric: Reports: No Symptoms - Patient Data Vitals - Most Recent: Last Vital Signs Temp 99 F 02/18/18 07:44 Pulse 72 02/18/18 07:44 Resp 18 02/18/18 07:44 BP 115/61 02/18/18 07:44 Pulse Ox 95 02/18/18 07:44 Weight - Most Recent: 157 lb 1.6 oz I&O - Last 24 Hours: Intake & Output 02/17/18 02/18/18 02/18/18 22:59 06:59 14:59 Intake Total 490 150 Output Total 400 300 300 Balance 90 -150 -300 Med Orders - Current: Current Medications Acetaminophen (Tylenol) 650 mg PO Q6H PRN PRN Reason: Pain Last Admin: 02/17/18 13:24 Dose: 650 mg Bisacodyl (Dulcolax) 5 mg PO DAILY PRN PRN Reason: Constipation Cyclobenzaprine HCl (Flexeril) 5 mg PO TID PRN PRN Reason: Muscle Spasm Last Admin: 02/17/18 16:00 Dose: 5 mg Docusate Sodium (Colace) 100 mg PO BID PRN PRN Reason: Constipation Heparin Sodium (Porcine) (Heparin Sodium) 5,000 units SUBCUT Q8HR [facility] Last Admin: 02/18/18 05:20 Dose: 5,000 units Lidocaine (Lidoderm 5%) 700 mg TOP Q24H [facility] Last Admin: 02/18/18 05:08 Dose: 700 mg Meclizine HCl (Antivert) 25 mg PO TID PRN PRN Reason: Dizziness Miscellaneous Information (Remove Patch) 1 ea TRDERM DAILY@1700 [facility] Last Admin: 02/17/18 17:32 Dose: Not Given Omeprazole (Omeprazole) 20 mg PO ACBRK [facility] Last Admin: 02/18/18 05:18 Dose: 20 mg Ondansetron HCl (Zofran Odt) 4 mg PO Q4H PRN PRN Reason: nausea, able to take PO Ondansetron HCl (Zofran) 4 mg IVPUSH Q4H PRN PRN Reason: Nausea/Vomiting Diltiazem Hcl 120 Mg (Er Cap Own Med) 120 each PO DAILY [facility] Last Admin: 02/18/18 08:43 Dose: 120 each Polyethylene Glycol (Miralax) 17 gm PO DAILY PRN PRN Reason: Constipation Last Admin: 02/17/18 20:12 Dose: 17 gm Promethazine HCl (Phenergan) 25 mg PO Q6H PRN PRN Reason: nausea, able to take PO Promethazine HCl (Phenergan) 6.25 mg IM Q6H PRN PRN Reason: Nausea/Vomiting Senna/Docusate Sodium (Senna Plus) 1 tab PO BEDTIME PRN PRN Reason: Constipation Discontinued Medications Acetaminophen (Tylenol Extra Strength) 500 mg PO ONETIME ONE Stop: 02/17/18 00:42 Last Admin: 02/17/18 00:45 Dose: 500 mg Cyclobenzaprine HCl (Flexeril) 5 mg PO ONETIME ONE Stop: 02/17/18 00:41 Last Admin: 02/17/18 00:45 Dose: 5 mg Diltiazem HCl (Cardizem Cd) 180 mg PO DAILY [facility] Last Admin: 02/17/18 18:24 Dose: Not Given Lactated Ringer's (Ringers, Lactated) 1,000 mls @ 125 mls/hr IV ASDIRECTED [facility] Stop: 02/17/18 20:31 Last Infusion: 02/17/18 14:52 Dose: Infused - Exam General: Alert, Oriented, Moderate Distress HEENT: Pupils Equal, Pupils Reactive Neck: Supple Lungs: Clear to Auscultation, Normal Respiratory Effort Cardiovascular: Regular Rate GI/Abdominal Exam: Normal Bowel Sounds, Soft, Non-Tender, No Distention Back Exam: Other (low back pain/tenderness to palpation) Extremities: Normal Inspection, Non-Tender, No Pedal Edema Peripheral Pulses: 2+: Radial (L), Radial (R), Dorsalis Pedis (L), Dorsalis Pedis (R) Skin: Warm, Dry, Intact Neurological: No New Focal Deficit Psy/Mental Status: Alert, Normal Affect, Normal Mood - Problem List & Annotations (1) Right flank pain SNOMED Code(s): 961699923 Code(s): R10.9 - UNSPECIFIED ABDOMINAL PAIN Status: Acute Current Visit: Yes (2) Constipation SNOMED Code(s): 64733231 Code(s): K59.00 - CONSTIPATION, UNSPECIFIED Status: Acute Current Visit: Yes - Problem List Review Problem List Initiated/Reviewed/Updated: Yes - My Orders Last 24 Hours: My Active Orders 02/17/18 14:59 Communication Order [RC] 08,20 Cyclobenzaprine [Flexeril] 5 mg PO TID PRN 02/17/18 17:00 Remove Patch 1 ea TRDERM DAILY@1700 02/17/18 18:13 Lumbar Spine Comp wo Cont [MR] Routine 02/17/18 Dinner Regular Diet [DIET] 02/18/18 09:00 Patient's Own Medication [Ptom] 120 each PO DAILY - Plan Plan:: #Right flank/low back pain: Patient with 9/10 right low back/flank pain that radiates anteriorly to the right groin. No trauma. Started while she was driving. Worsens with movement. No dysuria or hematuria. No alarm symptoms. No systemic signs or symptoms. CT negative. UA negative. MRI with negative findings on preliminary read. - Pain management with tylenol and lidocaine patch - Tramadol - PT/OT #Constipation: Miralax yesterday did not help. - Start Milk of magnesia.
[2018-02-18] MEDS ORDERED: Magnesium Hydroxide 400 MG/5 ML Susp 30 ML Cup PO PRN (10:43)
--- NOTE | 2018-02-18 10:45 | MR ---
CLINICAL HISTORY: 67-year-old 160 pound female hospitalized with severe low back pain ("acute intractable pain" started 16 February 2018"). This is not work-related. SCAN TECHNIQUE: Unenhanced sagittal T1/T2/T2 fat saturation and axial T1/T2 magnetic resonance images of the lumbar spine obtained while the patient was lying supine on the [employer] magnet [place], [place]. All data archived in the PACS system for storage, reformatting sagittal/axial planes and study. INTERPRETATION: 1. Early signs of disc degeneration (desiccation and some anterior (nonclinical) subligamentous herniation L1-2, L2-3, and L3-4 levels. Associated marginal mid lumbar hypertrophic spondylosis. 2. No sign of pathologic skeletal lesion (hemangioma L3), lumbar fracture or spondylolisthesis. 3. Capacious bony spinal canal volume. No surgical disc herniation or extruded "free" intracanalicular disc fragment. 4. No intracanalicular soft tissue tumor mass. No adhesions of the cauda equina. No congenital nerve root cysts. CONCLUSION: Signs of chronic mild disc degeneration and reactive arthritis (spondylolisthesis). No lumbar fracture, dislocation or surgical disc herniation.
[2018-02-18] MEDS ORDERED: Magnesium Hydroxide 400 MG/5 ML Susp 30 ML Cup PO ONE (11:00)
[2018-02-18] MEDS: traMADol 50 MG Tab PO PRN ×2 (11:46→19:16)
[2018-02-18] MEDS: Acetaminophen 325 MG Tab PO PRN (15:41)
[2018-02-18] MEDS: Polyethylene Glycol 3350 Powder 17 GM Packet PO PRN (16:59)
[2018-02-19] MEDS: Lidocaine 5% 700 MG Patch TOP SCH (05:17)
[2018-02-19] MEDS: Heparin Sodium 5,000 Units/ML Vial SUBCUT SCH ×2 (05:25→13:51)
[2018-02-19] MEDS: Omeprazole 20 MG Cap.CR **OWN MED PO SCH (05:27)
[2018-02-19] MEDS: DILTIAZEM HCL 120 MG PO SCH (08:35)
[2018-02-19] MEDS ORDERED: Lactulose Soln 10 GM/15 ML 30 ML UD Cup PO ONE (10:19)
--- NOTE | 2018-02-19 15:41 | PCM.DCSUM1 ---
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 She denied trauma to the back. CT and MRI were negative. There was "signs of mild disc degeneration and reactive arthritis ( spondylolisthesis). No lumbar fracture, dislocation or surgical disc herniation." Patient worked with physical therapy was able to ambulate independently with her. She reported that she has a walker at home but has not been using it. Her pain was managed with Lidoderm and tramadol. She reported constipation during this hospitalization. She was given miralax and later lactulose. She had three small bowel movements on day of discharge. She was discharged home to follow up with her PCP and to continue physical therapy. Diagnosis: Stroke: No - Discharge Data Discharge Date: 02/19/18 Discharge Disposition: Home, Self-Care 01 Condition: Stable - Discharge Diagnosis/Problem(s) (1) Right flank pain SNOMED Code(s): 766180625 ICD Code: R10.9 - UNSPECIFIED ABDOMINAL PAIN Status: Acute Current Visit : Yes (2) Constipation SNOMED Code(s): 98867856 ICD Code: K59.00 - CONSTIPATION, UNSPECIFIED Status: Acute Current Visit : Yes - Patient Summary/Data Consults: Consultations 02/18/18 10:07 PT Evaluation and Treatment [CONS] Routine - Discharge Plan *PRESCRIPTION DRUG MONITORING PROGRAM REVIEWED*: Yes *COPY OF PRESCRIPTION DRUG MONITORING REPORT IN PATIENT SARAH: No Prescriptions/Med Rec: Acetaminophen [Tylenol] 650 mg PO Q6H PRN 30 Days #100 tablet PRN Reason: Pain Cyclobenzaprine [Flexeril] 5 mg PO TID PRN #30 tablet PRN Reason: Muscle Spasm Docusate Sodium [Colace] 100 mg PO BID PRN #60 cap PRN Reason: Constipation Lidocaine 5% [Lidoderm 5%] 700 mg TOP Q24H #24 patch Polyethylene Glycol 3350 [MiraLAX] 17 gm PO DAILY PRN #30 packet PRN Reason: Constipation traMADol [Ultram] 50 mg PO Q4H PRN #20 tablet PRN Reason: Pain (Severe 7-10) Home Medications: Home Meds Aspirin [Halfprin] 81 mg PO DAILY 09/08/13 [History] Diltiazem [Tiazac] 120 mg PO DAILY 09/08/13 [History] Meclizine [Antivert] 25 mg PO TID PRN 09/08/13 [History] Omeprazole 20 mg PO DAILY 09/08/13 [History] Acetaminophen [Tylenol] 650 mg PO Q6H PRN 30 Days #100 tablet 02/19/18 [Rx] Cyclobenzaprine [Flexeril] 5 mg PO TID PRN #30 tablet 02/19/18 [Rx] Docusate Sodium [Colace] 100 mg PO BID PRN #60 cap 02/19/18 [Rx] Lidocaine 5% [Lidoderm 5%] 700 mg TOP Q24H #24 patch 02/19/18 [Rx] Polyethylene Glycol 3350 [MiraLAX] 17 gm PO DAILY PRN #30 packet 02/19/18 [Rx] traMADol [Ultram] 50 mg PO Q4H PRN #20 tablet 02/19/18 [Rx] Patient Handouts: Back Pain, Adult, Constipation, Adult, [id number] - Discharge Summary/Plan Comment DC Time >30 min.: Yes - General Info Date of Service: 02/19/18 Admission Dx/Problem (Free Text: Admission Diagnosis/Problem Admission Diagnosis/Problem Back pain Subjective Update: No acute events overnight. She reports that her pain is much better controlled. Able to ambulate with walker independently. Has not had a bowel movement since . Passing gas. Had miralax yesterday. Otherwise no acute complaints. - Review of Systems General: Reports: No Symptoms HEENT: Reports: No Symptoms Pulmonary: Reports: No Symptoms Cardiovascular: Reports: No Symptoms Gastrointestinal: Reports: No Symptoms Genitourinary: Reports: No Symptoms Musculoskeletal: Reports: No Symptoms Skin: Reports: No Symptoms Neurological: Reports: No Symptoms Psychiatric: Reports: No Symptoms Systems Review Comment: As above. - Patient Data Vitals - Most Recent: Last Vital Signs Temp 97.6 F 02/19/18 11:42 Pulse 67 02/19/18 11:42 Resp 18 02/19/18 11:42 BP 126/68 02/19/18 11:42 Pulse Ox 96 02/19/18 11:42 Weight - Most Recent: 157 lb 1.6 oz I&O - Last 24 hours: Intake & Output 02/19/18 02/19/18 02/19/18 06:59 14:59 22:59 Intake Total 300 540 Balance 300 540 Med Orders - Current: Current Medications Acetaminophen (Tylenol) 650 mg PO Q6H PRN PRN Reason: Pain Last Admin: 02/18/18 15:41 Dose: 650 mg Bisacodyl (Dulcolax) 5 mg PO DAILY PRN PRN Reason: Constipation Cyclobenzaprine HCl (Flexeril) 5 mg PO TID PRN PRN Reason: Muscle Spasm Last Admin: 02/17/18 16:00 Dose: 5 mg Docusate Sodium (Colace) 100 mg PO BID PRN PRN Reason: Constipation Heparin Sodium (Porcine) (Heparin Sodium) 5,000 units SUBCUT Q8HR [facility] Last Admin: 02/19/18 13:51 Dose: 5,000 units Lidocaine (Lidoderm 5%) 700 mg TOP Q24H [facility] Last Admin: 02/19/18 05:17 Dose: 700 mg Magnesium Hydroxide (Milk Of Magnesia) 30 ml PO Q6H PRN PRN Reason: Constipation Meclizine HCl (Antivert) 25 mg PO TID PRN PRN Reason: Dizziness Miscellaneous Information (Remove Patch) 1 ea TRDERM DAILY@1700 [facility] Last Admin: 02/18/18 16:51 Dose: Not Given Omeprazole (Omeprazole) 20 mg PO ACBRK [facility] Last Admin: 02/19/18 05:27 Dose: 20 mg Ondansetron HCl (Zofran Odt) 4 mg PO Q4H PRN PRN Reason: nausea, able to take PO Ondansetron HCl (Zofran) 4 mg IVPUSH Q4H PRN PRN Reason: Nausea/Vomiting Diltiazem Hcl 120 Mg (Er Cap Own Med) 120 each PO DAILY [facility] Last Admin: 02/19/18 08:35 Dose: 120 each Polyethylene Glycol (Miralax) 17 gm PO DAILY PRN PRN Reason: Constipation Last Admin: 02/18/18 16:59 Dose: 17 gm Promethazine HCl (Phenergan) 25 mg PO Q6H PRN PRN Reason: nausea, able to take PO Promethazine HCl (Phenergan) 6.25 mg IM Q6H PRN PRN Reason: Nausea/Vomiting Senna/Docusate Sodium (Senna Plus) 1 tab PO BEDTIME PRN PRN Reason: Constipation Tramadol HCl (Ultram) 50 mg PO Q4H PRN PRN Reason: Pain (severe 7-10) Last Admin: 02/18/18 19:16 Dose: 50 mg Discontinued Medications Acetaminophen (Tylenol Extra Strength) 500 mg PO ONETIME ONE Stop: 02/17/18 00:42 Last Admin: 02/17/18 00:45 Dose: 500 mg Cyclobenzaprine HCl (Flexeril) 5 mg PO ONETIME ONE Stop: 02/17/18 00:41 Last Admin: 02/17/18 00:45 Dose: 5 mg Diltiazem HCl (Cardizem Cd) 180 mg PO DAILY [facility] Last Admin: 02/17/18 18:24 Dose: Not Given Lactated Ringer's (Ringers, Lactated) 1,000 mls @ 125 mls/hr IV ASDIRECTED [facility] Stop: 02/17/18 20:31 Last Infusion: 02/17/18 14:52 Dose: Infused Lactulose (Cephulac) 20 gm PO ONETIME ONE Stop: 02/19/18 10:20 Last Admin: 02/19/18 10:39 Dose: 20 gm Magnesium Hydroxide (Milk Of Magnesia) 30 ml PO ONETIME ONE Stop: 02/18/18 11:01 Last Admin: 02/18/18 11:47 Dose: 30 ml - Exam General: Reports: Alert, Oriented HEENT: Reports: Pupils Equal, Pupils Reactive, EOMI, Mucous Membr. Moist/[place] Neck: Reports: Supple Lungs: Reports: Clear to Auscultation, Normal Respiratory Effort Cardiovascular: Reports: Regular Rate, Regular Rhythm GI/Abdominal Exam: Normal Bowel Sounds, Soft, Non-Tender, No Distention Back Exam: Reports: Normal Inspection Extremities: Normal Inspection, Non-Tender, No Pedal Edema Skin: Reports: Warm, Dry, Intact Neurological: Reports: No New Focal Deficit Psy/Mental Status: Reports: Alert, Normal Affect, Normal Mood
[2018-02-19 15:43] VITALS: BP 102/63
[2018-02-19] MEDS ORDERED: Pneumococcal Polyvalent-23 Vaccine 0.5 ML SDV IM ONE (15:48)
== END 2018-02-19 16:32 | disposition home or self-care (01) ==
LOC: DL.ED 00:08 → UNDOADMOB 03:29 → DL.MS 03:29
PROVIDERS: ADMIT Internal Medicine; ATTEND Internal Medicine
DX: M54.5 Low back pain (principal); R10.9 Unspecified abdominal pain; M47.816 Spondylosis without myelopathy or radiculopathy, lumbar region; K59.00 Constipation, unspecified; I10 Essential (primary) hypertension; K21.9 Gastro-esophageal reflux disease without esophagitis; Z87.891 Personal history of nicotine dependence; Z86.79 Personal history of other diseases of the circulatory system; Z79.82 Long term (current) use of aspirin; Z79.899 Other long term (current) drug therapy; Z88.5 Allergy status to narcotic agent; Z88.6 Allergy status to analgesic agent
CPT/HCPCS: 36415; 72131; 72148; 80053; 81001; 85025; 90732; 96360; 96361; 96372; 97162; 99284; A9270; G0009; G0378; J1644; J7120

== ENCOUNTER 2018-05-27 13:01 | Emergency (ER) | payer BC, OTHER ==
[2018-05-27 13:21] VITALS: BP 122/79; PULSE 97
[2018-05-27] MEDS ORDERED: Ondansetron 4 MG Tab.DIS PO ONE (15:10)
--- NOTE | 2018-05-27 15:12 | EDM.PDOC ---
ED HPI GENERAL MEDICAL PROBLEM - General Chief Complaint: ENT Problem Stated Complaint: HEADACH,SOAR THROAT, PUKING [id number] Time Seen by Provider: 05/27/18 14:45 Source of Information: Reports: Patient History Limitations: Reports: No Limitations - History of Present Illness INITIAL COMMENTS - FREE TEXT/NARRATIVE: This 67 yo female patient reports to the ED with a sore throat, generalized body aches and left ear "fullness". The patient reports her symptoms started yesterday. The patient reports she has been nauseated, but has not vomited. The patient has been taking Tylenol for temporary symptom relief. 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 Throat Pain Score (Numeric/FACES): 8 - Related Data Allergies Allergy/AdvReac Type Severity Reaction Status Date / Time ibuprofen Allergy Intermediate Swelling Verified 05/27/18 13:16 codeine Allergy Nausea Verified 05/27/18 13:16 oseltamivir phosphate Allergy Hallucinati Verified 05/27/18 13:16 [From Tamiflu] ons Home Meds: Home Meds Aspirin [Halfprin] 81 mg PO DAILY 09/08/13 [History] Diltiazem [Tiazac] 120 mg PO DAILY 09/08/13 [History] Meclizine [Antivert] 25 mg PO TID PRN 09/08/13 [History] Omeprazole 20 mg PO DAILY 09/08/13 [History] Acetaminophen [Tylenol] 650 mg PO Q6H PRN 30 Days #100 tablet 02/19/18 [Rx] Cyclobenzaprine [Flexeril] 5 mg PO TID PRN #30 tablet 02/19/18 [Rx] Docusate Sodium [Colace] 100 mg PO BID PRN #60 cap 02/19/18 [Rx] Lidocaine 5% [Lidoderm 5%] 700 mg TOP Q24H #24 patch 02/19/18 [Rx] Polyethylene Glycol 3350 [MiraLAX] 17 gm PO DAILY PRN #30 packet 02/19/18 [Rx] traMADol [Ultram] 50 mg PO Q4H PRN #20 tablet 02/19/18 [Rx] Past Medical History HEENT History: Reports: Allergic Rhinitis, Impaired Vision Cardiovascular History: Reports: High Cholesterol, Hypertension Respiratory History: Reports: None Gastrointestinal History: Reports: GERD Genitourinary History: Reports: None 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 Musculoskeletal History: Reports: Neck Pain, Chronic Neurological History: Reports: Cerebral Aneurysms Psychiatric History: Reports: None Endocrine/Metabolic History: Reports: None Hematologic History: Reports: None Immunologic History: Reports: None Oncologic (Cancer) History: Reports: None Dermatologic History: Reports: Other (See Below) Other Dermatologic History: rash above eyes - Infectious Disease History Infectious Disease History: Reports: None - Past Surgical History Head Surgeries/Procedures: Reports: None Other Cardiovascular Surgeries/Procedures: angio seal GI Surgical History: Reports: Lysis of Adhesions Other Neurological Surgeries/Procedures: Craniotomy- November 2014 Musculoskeletal Surgical History: Reports: Other (See Below) Social & Family History - Family History Family Medical History: Noncontributory Oncologic: Reports: Breast, Ovarian - Tobacco Use Smoking Status *Q: Never Smoker Second Hand Smoke Exposure: No - Caffeine Use Caffeine Use: Reports: Tea - Recreational Drug Use Recreational Drug Use: No - Living Situation & Occupation Living situation: Reports: with Family ED ROS ENT - Review of Systems Review Of Systems: ROS reveals no pertinent complaints other than HPI. ED EXAM, ENT - Physical Exam Exam: See Below Exam Limited By: No Limitations General Appearance: Alert, WD/WN, Moderate Distress Eye Exam: Bilateral Eye: EOMI, Normal Inspection, PERRL Ears: TM Bulging (left), TM Erythema (left), TM Fluid (left) Nose: Normal Inspection, Normal Mucousa, No Blood Mouth/Throat: Normal Inspection, Normal Gums, Normal Lips, Normal Oropharynx, Normal Teeth Head: Atraumatic, Normocephalic Neck: Normal Inspection, Supple, Non-Tender, Full Range of Motion Respiratory/Chest: No Respiratory Distress, Lungs Clear, Normal Breath Sounds, No Accessory Muscle Use, Chest Non-Tender Cardiovascular: Normal Peripheral Pulses, Regular Rate, Rhythm, No Edema, No Gallop, No JVD, No Murmur, No Rub GI/Abdominal: Normal Bowel Sounds, Soft, Non-Tender, No Organomegaly, No Distention, No Abnormal Bruit, No Mass (Female) Exam: Deferred Rectal (Female) Exam: Deferred Back: Normal Inspection, Full Range of Motion Extremities: Normal Inspection, Normal Range of Motion, Non-Tender, No Pedal Edema, Normal Capillary Refill Neurological: Alert, Oriented, CN II-XII Intact, Normal Cognition, Normal Gait, Normal Reflexes, No Motor/Sensory Deficits Psychiatric: Normal Affect, Normal Mood Skin: Dry, Intact, Normal Color, No Rash, Increased Warmth Lymphatic: No Adenopathy Course - Vital Signs Last Recorded V/S: Last Vital Signs Temp 36.9 C 05/27/18 13:20 Pulse 97 05/27/18 13:20 Resp 20 05/27/18 13:20 BP 122/79 05/27/18 13:20 Pulse Ox 97 05/27/18 13:20 - Orders/Labs/Meds Orders: Active Orders 24 hr Category Date Time Status CULTURE STREP A CONFIRMATION [] Stat Lab 05/27/18 13:19 Results STREP SCRN A RAPID W CULT CONF [] Stat Lab 05/27/18 13:19 Received Meds: Medications Discontinued Medications Generic Name Dose Route Start Last Admin Trade Name Freq PRN Reason Stop Dose Admin Ondansetron HCl 4 mg 05/27/18 15:10 05/27/18 15:14 Zofran Odt PO 05/27/18 15:11 4 mg ONETIME ONE Administration Departure - Departure Time of Disposition: 15:12 Disposition: Home, Self-Care 01 Condition: Fair Clinical Impression: Gastroenteritis, Left otitis media with effusion - Discharge Information *PRESCRIPTION DRUG MONITORING PROGRAM REVIEWED*: Not Applicable *COPY OF PRESCRIPTION DRUG MONITORING REPORT IN PATIENT SARAH: Not Applicable Instructions: Viral Gastroenteritis, Adult, [id number], Otitis Media, Adult, [id number] Forms: ED Department Discharge Care Plan Goals: The patient was advised of the examination and lab results during the visit. The patient was given an oral dose of Zofran (4 mg) while in the ED. The patient was discharged with a script for Zofran (4 mg) #12 to take 1 by mouth every 6 hours as needed and Augmentin (500/125) #14 to take 1 by mouth 2 times per day for 7 days. The patient was encouraged to stick to a BRAT (bananas, rice , applesauce and toast) with small frequent sips of fluid. The patient may continue to take Tylenol for temporary symptom relief. If the patient has any additional symptoms or concerns, the patient should either return to the emergency department or visit her primary care facility. - My Orders Last 24 Hours: My Active Orders 05/27/18 13:19 CULTURE STREP A CONFIRMATION [RM] Stat STREP SCRN A RAPID W CULT CONF [RM] Stat - Assessment/Plan Last 24 Hours: My Active Orders 05/27/18 13:19 CULTURE STREP A CONFIRMATION [RM] Stat STREP SCRN A RAPID W CULT CONF [RM] Stat
== END 2018-05-27 15:20 | disposition home or self-care (01) ==
LOC: DL.ED 13:01
DX: H65.92 Unspecified nonsuppurative otitis media, left ear (principal); K52.9 Noninfective gastroenteritis and colitis, unspecified; E78.00 Pure hypercholesterolemia, unspecified; I10 Essential (primary) hypertension; K21.9 Gastro-esophageal reflux disease without esophagitis; Z88.5 Allergy status to narcotic agent; Z79.82 Long term (current) use of aspirin; Z79.899 Other long term (current) drug therapy; Z88.6 Allergy status to analgesic agent
CPT/HCPCS: 87081; 87430; 99283; A9270

== ENCOUNTER 2018-11-21 19:08 | Emergency (ER) | payer BC, OTHER ==
[2018-11-21] MEDS ORDERED: Ondansetron 4 MG Tab.DIS PO ONE (19:09)
[2018-11-21] MEDS ORDERED: Ondansetron 4 MG/2 ML SDV IV ONE (19:55)
[2018-11-21] MEDS ORDERED: Sodium Chloride 0.9% 1,000 ML IV ONE (19:55)
--- NOTE | 2018-11-21 20:03 | EDM.PDOC ---
ED HPI GENERAL MEDICAL PROBLEM - General Chief Complaint: General Stated Complaint: HEADACHE AND SICK Time Seen by Provider: 11/21/18 19:58 Source of Information: Reports: Patient History Limitations: Reports: No Limitations - History of Present Illness INITIAL COMMENTS - FREE TEXT/NARRATIVE: 2 days h/o chills, no fever, body aches, N&V, even hard to keep down liquids. also has headache too. 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: Acetaminophen Lower Abdominal Pain Score (Numeric/FACES): 4 Right Parietal Head Pain Score (Numeric/FACES): 4 - Related Data Allergies Allergy/AdvReac Type Severity Reaction Status Date / Time ibuprofen Allergy Intermediate Swelling Verified 05/27/18 13:16 codeine Allergy Nausea Verified 05/27/18 13:16 oseltamivir phosphate Allergy Hallucinati Verified 05/27/18 13:16 [From Tamiflu] ons Home Meds: Home Meds Aspirin [Halfprin] 81 mg PO DAILY 09/08/13 [History] Diltiazem [Tiazac] 120 mg PO DAILY 09/08/13 [History] Meclizine [Antivert] 25 mg PO TID PRN 09/08/13 [History] Omeprazole 20 mg PO DAILY 09/08/13 [History] Acetaminophen [Tylenol] 650 mg PO Q6H PRN 30 Days #100 tablet 02/19/18 [Rx] Cyclobenzaprine [Flexeril] 5 mg PO TID PRN #30 tablet 02/19/18 [Rx] Docusate Sodium [Colace] 100 mg PO BID PRN #60 cap 02/19/18 [Rx] Lidocaine 5% [Lidoderm 5%] 700 mg TOP Q24H #24 patch 02/19/18 [Rx] Polyethylene Glycol 3350 [MiraLAX] 17 gm PO DAILY PRN #30 packet 02/19/18 [Rx] traMADol [Ultram] 50 mg PO Q4H PRN #20 tablet 02/19/18 [Rx] Past Medical History HEENT History: Reports: Allergic Rhinitis, Impaired Vision Cardiovascular History: Reports: High Cholesterol, Hypertension Respiratory History: Reports: None Gastrointestinal History: Reports: GERD Genitourinary History: Reports: None 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 Musculoskeletal History: Reports: Neck Pain, Chronic Neurological History: Reports: Cerebral Aneurysms Psychiatric History: Reports: None Endocrine/Metabolic History: Reports: None Hematologic History: Reports: None Immunologic History: Reports: None Oncologic (Cancer) History: Reports: None Dermatologic History: Reports: Other (See Below) Other Dermatologic History: rash above eyes - Infectious Disease History Infectious Disease History: Reports: None - Past Surgical History Head Surgeries/Procedures: Reports: None Other Cardiovascular Surgeries/Procedures: angio seal GI Surgical History: Reports: Lysis of Adhesions Other Neurological Surgeries/Procedures: Craniotomy- November 2014 Musculoskeletal Surgical History: Reports: Other (See Below) Social & Family History - Family History Family Medical History: Noncontributory Oncologic: Reports: Breast, Ovarian - Tobacco Use Smoking Status *Q: Unknown Ever Smoked - Caffeine Use Caffeine Use: Reports: Coffee - Recreational Drug Use Recreational Drug Use: No - Living Situation & Occupation Living situation: Reports: with Family ED ROS GENERAL - Review of Systems Review Of Systems: ROS reveals no pertinent complaints other than HPI. ED EXAM, GENERAL - Physical Exam Exam: See Below Exam Limited By: No Limitations General Appearance: Alert, WD/WN, Mild Distress, Other (discomfort) Ears: Hearing Grossly Normal Throat/Mouth: Normal Voice, No Airway Compromise Head: Atraumatic Neck: Non-Tender, Full Range of Motion Respiratory/Chest: No Respiratory Distress Cardiovascular: Regular Rate, Rhythm GI/Abdominal: Soft, Non-Tender Neurological: Alert, Oriented, Normal Cognition, Normal Gait, No Motor/Sensory Deficits Psychiatric: Flat Affect Skin Exam: Warm, Dry, Normal Color Lymphatic: No Adenopathy Course - Vital Signs Last Recorded V/S: Last Vital Signs Temp 36.9 C 11/21/18 19:49 Pulse 109 H 11/21/18 19:49 Resp 18 11/21/18 19:49 BP 118/84 11/21/18 19:49 Pulse Ox 95 11/21/18 19:49 - Orders/Labs/Meds Orders: Active Orders 24 hr Category Date Time Status Chest 1V Frontal [CR] Urgent Exams 11/21/18 20:26 Taken CULTURE STREP A CONFIRMATION [RM] Stat Lab 11/21/18 19:46 Results STREP SCRN A RAPID W CULT CONF [RM] Stat Lab 11/21/18 19:46 Results Labs: Laboratory Tests 11/21/18 11/21/18 11/21/18 Range/Units 20:00 20:00 20:00 WBC 19.1 H (5.0-10.0) 10^3/uL RBC 4.89 (4.2-5.4) 10^6/uL Hgb 14.8 (12.0-16.0) g/dL Hct 45.0 (37.0-47.0) % MCV 92.0 (80-100) fL MCH 30.3 (27.0-34.0) pg MCHC 32.9 L (33.0-35.0) g/dL Plt Count 203 (150-450) 10^3/uL Neut % (Auto) 82.9 H (42.2-75.2) % Lymph % (Auto) 8.9 L (20.5-50.1) % [place] % (Auto) 8.0 (2-8) % Eos % (Auto) 0.1 L (1.0-3.0) % Baso % (Auto) 0.1 (0.0-1.0) % Sodium 139 (135-145) mmol/L Potassium 4.0 (3.6-5.0) mmol/L Chloride 105 (101-111) mmol/L Carbon Dioxide 24.0 (21.0-31.0) mmol/L Anion Gap 14.0 BUN 12 (7-18) mg/dL Creatinine 0.8 (0.6-1.3) mg/dL Est Cr Clr Drug Dosing 62.45 mL/min Estimated GFR (MDRD) > 60 BUN/Creatinine Ratio 15.00 Glucose 116 H (74-105) mg/dL Lactic Acid 1.0 (0.5-2.2) mmol/L Calcium 9.6 (8.4-10.2) mg/dl Total Bilirubin 0.8 (0.2-1.0) mg/dL AST 20 (10-42) IU/L ALT 17 (10-60) IU/L Alkaline Phosphatase 85 (42-121) IU/L Total Protein 7.9 (6.7-8.2) g/dl Albumin 4.1 (3.2-5.5) g/dl Globulin 3.8 Albumin/Globulin Ratio 1.08 Meds: Medications Discontinued Medications Generic Name Dose Route Start Last Admin Trade Name Freq PRN Reason Stop Dose Admin Sodium Chloride 1,000 mls @ 999 mls/hr 11/21/18 19:55 11/21/18 20:08 Normal Saline IV 11/21/18 20:55 999 mls/hr .BOLUS ONE Administration Ondansetron HCl 4 mg 11/21/18 19:55 11/21/18 20:07 Zofran IV 11/21/18 19:56 4 mg ONETIME ONE Administration - Re-Assessments/Exams Free Text/Narrative Re-Assessment/Exam: 11/21/18 21:03 results discussed with pt who is feeling better presently. Departure - Departure Time of Disposition: 21:03 Disposition: Home, Self-Care 01 Condition: Good Clinical Impression: Gastroenteritis - Discharge Information Instructions: Viral Gastroenteritis, Adult, [id number] Forms: ED Department Discharge Additional Instructions: 1) rest as much as possible 2) liquids only next 48 hours 3) follow up at clinic 4) recheck as needed rx given; zofran m4 ODT bid prn x 6 - My Orders Last 24 Hours: My Active Orders 11/21/18 19:46 CULTURE STREP A CONFIRMATION [RM] Stat STREP SCRN A RAPID W CULT CONF [RM] Stat 11/21/18 20:26 Chest 1V Frontal [CR] Urgent - Assessment/Plan Last 24 Hours: My Active Orders 11/21/18 19:46 CULTURE STREP A CONFIRMATION [RM] Stat STREP SCRN A RAPID W CULT CONF [RM] Stat 11/21/18 20:26 Chest 1V Frontal [CR] Urgent
[2018-11-21 20:25] LABS: CHLORIDE,CL 105 mmol/L (101-111); SODIUM,NA 139 mmol/L (135-145)
[2018-11-21] MEDS ORDERED: Ondansetron 4 MG Tab.DIS ONE (21:04)
[2018-11-21 21:10] VITALS: BP 125/63; PULSE 76
== END 2018-11-21 21:08 | disposition home or self-care (01) ==
LOC: DL.ED 19:08
DX: K52.9 Noninfective gastroenteritis and colitis, unspecified (principal); I10 Essential (primary) hypertension; K21.9 Gastro-esophageal reflux disease without esophagitis; Z88.5 Allergy status to narcotic agent; Z88.6 Allergy status to analgesic agent; Z88.1 Allergy status to other antibiotic agents; Z88.3 Allergy status to other anti-infective agents; Z79.82 Long term (current) use of aspirin; Z79.899 Other long term (current) drug therapy
CPT/HCPCS: 36415; 71045; 80053; 83605; 85025; 87081; 87430; 96361; 96374; 99284; J2405; J7030

== ENCOUNTER 2019-03-25 16:58 | Emergency (ER) | payer BC, OTHER ==
[2019-03-25 17:40] LABS: ANION GAP 12.6; CHLORIDE,CL 103 mmol/L (101-111); SODIUM,NA 138 mmol/L (135-145)
--- NOTE | 2019-03-25 17:47 | EDM.PDOC ---
<Sriram Green - Last Filed: 03/25/19 18:44> ED HPI GENERAL MEDICAL PROBLEM - General Chief Complaint: Chest Pain Stated Complaint: CHEST PAIN AMBULANCE Time Seen by Provider: 03/25/19 17:42 Source of Information: Reports: Patient, RN, RN Notes Reviewed History Limitations: Reports: No Limitations - History of Present Illness INITIAL COMMENTS - FREE TEXT/NARRATIVE: Pt here after EKG reveals RIGHT BBB. Report received from S to TEN [facility]. Pt states 7/10 pain to LEFT chest. Pt EKG performed upon arrival by RT Bobby. Pt states she was given baby ASA 4 tabs at 1600. Patient states the pain came on suddenly at about 1520 today and was a heavy pressure on her chest that radiated to her back. She was having shortness of breath when the pain started and it was hard for her to take a deep breath. Pt resting with HOB elevated. Pt calm and appropriate. Pt heart rate regularly irregular. LS clear in all kumari. No other complaints from pt at this time. Her pain after arriving to the ER is now 2/10 and the pain is not radiating anymore but in the left chest. Pain cannot be reproduced with palpation. Onset: Today Duration: Constant Location: Reports: Chest, Back Quality: Reports: Pressure Severity: Moderate Improves with: Reports: None Worsens with: Reports: None Associated Symptoms: Reports: Chest Pain, Shortness of Breath. Denies: Confusion, Cough, Diaphoresis, Fever/Chills, Headaches, Loss of Appetite, Nausea /Vomiting, Syncope Treatments TRIM OPERATOR: Reports: Other (see below) Other Treatments TRIM OPERATOR: ASA 81 mg 4 tabs 1600. Left Chest Pain Score (Numeric/FACES): 4 - Related Data Allergies Allergy/AdvReac Type Severity Reaction Status Date / Time ibuprofen Allergy Intermediate Swelling Verified 03/25/19 17:13 codeine Allergy Nausea Verified 03/25/19 17:13 oseltamivir phosphate Allergy Hallucinati Verified 03/25/19 17:13 [From Tamiflu] ons Home Meds: Home Meds Aspirin [Halfprin] 81 mg PO DAILY 09/08/13 [History] Diltiazem [Tiazac] 120 mg PO DAILY 09/08/13 [History] Meclizine [Antivert] 25 mg PO TID PRN 09/08/13 [History] Omeprazole 20 mg PO DAILY 09/08/13 [History] Acetaminophen [Tylenol] 650 mg PO Q6H PRN 30 Days #100 tablet 02/19/18 [Rx] Cyclobenzaprine [Flexeril] 5 mg PO TID PRN #30 tablet 02/19/18 [Rx] Docusate Sodium [Colace] 100 mg PO BID PRN #60 cap 02/19/18 [Rx] Lidocaine 5% [Lidoderm 5%] 700 mg TOP Q24H #24 patch 02/19/18 [Rx] polyethylene glycoL 3350 [MiraLAX] 17 gm PO DAILY PRN #30 packet 02/19/18 [Rx] traMADol [Ultram] 50 mg PO Q4H PRN #20 tablet 02/19/18 [Rx] Past Medical History HEENT History: Reports: Allergic Rhinitis, Impaired Vision Cardiovascular History: Reports: High Cholesterol, Hypertension Respiratory History: Reports: None Gastrointestinal History: Reports: GERD Genitourinary History: Reports: None 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: Reports: 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 Musculoskeletal History: Reports: Neck Pain, Chronic Neurological History: Reports: Cerebral Aneurysms Psychiatric History: Reports: None Endocrine/Metabolic History: Reports: None Hematologic History: Reports: None Immunologic History: Reports: None Oncologic (Cancer) History: Reports: None Dermatologic History: Reports: Other (See Below) Other Dermatologic History: rash above eyes - Infectious Disease History Infectious Disease History: Reports: Measles, Mumps - Past Surgical History Head Surgeries/Procedures: Reports: None Other Cardiovascular Surgeries/Procedures: angio seal GI Surgical History: Reports: Lysis of Adhesions Other Neurological Surgeries/Procedures: Craniotomy- November 2014 Musculoskeletal Surgical History: Reports: Other (See Below) Social & Family History - Family History Family Medical History: Noncontributory Oncologic: Reports: Breast, Ovarian - Tobacco Use Smoking Status *Q: Never Smoker Second Hand Smoke Exposure: No - Caffeine Use Caffeine Use: Reports: Coffee, Soda - Recreational Drug Use Recreational Drug Use: No - Living Situation & Occupation Living situation: Reports: with Family ED ROS GENERAL - Review of Systems Review Of Systems: Comprehensive ROS is negative, except as noted in HPI. ED EXAM, GENERAL - Physical Exam Exam: See Below Exam Limited By: No Limitations General Appearance: Alert, WD/WN, No Apparent Distress Head: Atraumatic, Normocephalic Neck: Normal Inspection, Supple, Non-Tender, Full Range of Motion. No: Carotid Bruit Respiratory/Chest: No Respiratory Distress, Lungs Clear, Normal Breath Sounds, No Accessory Muscle Use, Chest Non-Tender Cardiovascular: Normal Peripheral Pulses, Regular Rate, Rhythm, No Edema, No Gallop, No JVD, No Murmur, No Rub Peripheral Pulses: 2+: Carotid (L), Carotid (R) GI/Abdominal: Normal Bowel Sounds, Soft, Non-Tender, No Organomegaly, No Distention, No Abnormal Bruit, No Mass Back Exam: Normal Inspection, Full Range of Motion, NT Extremities: Normal Inspection, Normal Range of Motion, Non-Tender, Normal Capillary Refill, No Pedal Edema Neurological: Alert, Oriented, CN II-XII Intact, Normal Cognition, Normal Gait, Normal Reflexes, No Motor/Sensory Deficits Psychiatric: Normal Affect, Normal Mood Skin Exam: Warm, Dry, Intact, Normal Color, No Rash Lymphatic: No Adenopathy Course - Vital Signs Last Recorded V/S: Last Vital Signs Temp 98.9 F 03/25/19 17:01 Pulse 60 03/25/19 20:27 Resp 17 03/25/19 20:27 BP 134/89 03/25/19 20:27 Pulse Ox 98 03/25/19 20:27 - Orders/Labs/Meds Orders: Active Orders 24 hr Category Date Time Status EKG Documentation Completion [RC] STAT Care 03/25/19 19:26 Active EKG Documentation Completion [RC] STAT Care 03/25/19 21:00 Active Chest 2V [CR] Urgent Exams 03/25/19 17:00 Taken Labs: Laboratory Tests 03/25/19 03/25/19 03/25/19 Range/Units 17:09 17:09 21:25 WBC 7.4 (5.0-10.0) 10^3/uL RBC 4.36 (4.2-5.4) 10^6/uL Hgb 13.0 D (12.0-16.0) g/dL Hct 40.7 (37.0-47.0) % MCV 93.3 (80-100) fL MCH 29.8 (27.0-34.0) pg MCHC 31.9 L (33.0-35.0) g/dL Plt Count 220 (150-450) 10^3/uL Neut % (Auto) 44.5 (42.2-75.2) % Lymph % (Auto) 42.5 (20.5-50.1) % [place] % (Auto) 10.4 H (2-8) % Eos % (Auto) 2.3 (1.0-3.0) % Baso % (Auto) 0.3 (0.0-1.0) % Sodium 138 (135-145) mmol/L Potassium 4.6 (3.6-5.0) mmol/L Chloride 103 (101-111) mmol/L Carbon Dioxide 27.0 (21.0-31.0) mmol/L Anion Gap 12.6 BUN 16 (7-18) mg/dL Creatinine 0.8 (0.6-1.3) mg/dL Est Cr Clr Drug Dosing 59.73 mL/min Estimated GFR (MDRD) > 60 BUN/Creatinine Ratio 20.00 Glucose 91 (74-105) mg/dL Calcium 9.7 (8.4-10.2) mg/dl Total Bilirubin 0.5 (0.2-1.0) mg/dL AST 19 (10-42) IU/L ALT 18 (10-60) IU/L Alkaline Phosphatase 65 (42-121) IU/L Troponin I < 0.02 0.03 H* (0.00-0.02) ng/ml Total Protein 7.3 (6.7-8.2) g/dl Albumin 4.0 (3.2-5.5) g/dl Globulin 3.3 Albumin/Globulin Ratio 1.21 Amylase 40 (28-100) U/L Lipase 28 (22-51) U/L Departure - Departure Disposition: DC/Tfer to [facility] 02 Clinical Impression: Acute coronary syndrome, Elevated troponin Chest pain Qualifiers: Chest pain type: unspecified Qualified Code(s): R07.9 - Chest pain, unspecified Forms: ED Department Discharge, Interfacility Transfer EMTALA Sepsis Event Note - Evaluation Sepsis Screening Result: No Definite Risk - Focused Exam Vital Signs: Vital Signs Temp Pulse Resp BP Pulse Ox 03/25/19 20:27 60 17 134/89 98 03/25/19 17:01 98.9 F 55 L 18 136/76 95 Date Exam was Performed: 03/25/19 Time Exam was Performed: 18:44 <Ethel Garcia - Last Filed: 03/25/19 22:32> Course - Radiology Interpretation Free Text/Narrative:: Chest xray: FINDINGS: Lungs: Unremarkable. No consolidation. Pleural space: Unremarkable. No pleural effusion. No pneumothorax. Heart/Mediastinum: Unremarkable. No cardiomegaly. Bones/joints: Unremarkable. IMPRESSION: No acute findings. Thank you for allowing us to participate in the care of your patient. Dictated and Authenticated by: Brian Patino MD 03/25/2019 5:39 PM Central Time ([place] & [place]) See rad report - Re-Assessments/Exams Free Text/Narrative Re-Assessment/Exam: 03/25/19 22:31 Discussed patient care with Dr. Rankin at [facility] who agreed to accept the patient for transfer. Departure - Departure Time of Disposition: 22:31 Reason for Transfer *Q: Other Condition: Fair Sepsis Event Note - Focused Exam Date Exam was Performed: 03/25/19 Time Exam was Performed: 22:30
[2019-03-25 20:28] VITALS: BP 134/89; PULSE 60
== END 2019-03-25 23:15 ==
LOC: DL.ED 16:58
DX: I24.9 Acute ischemic heart disease, unspecified (principal); R79.89 Other specified abnormal findings of blood chemistry; K21.9 Gastro-esophageal reflux disease without esophagitis; I10 Essential (primary) hypertension; Z88.6 Allergy status to analgesic agent; Z88.5 Allergy status to narcotic agent; Z88.8 Allergy status to other drugs, medicaments and biological substances; Z79.82 Long term (current) use of aspirin; Z79.899 Other long term (current) drug therapy
CPT/HCPCS: 36415; 71046; 80053; 82150; 83690; 84484; 85025; 93005; 99285-25

== ENCOUNTER 2021-02-14 17:19 | Emergency (ER) | payer BC, OTHER ==
[2021-02-14] MEDS ORDERED: Sodium Chloride 0.9% 10 ML Syringe FLUSH PRN (17:27)
[2021-02-14 17:56] VITALS: BP 140/86; PULSE 63
--- NOTE | 2021-02-14 17:57 | CR ---
PROCEDURE INFORMATION: Exam: XR Chest Exam date and time: 02/14/2021 5:40 PM Age: 70 years old Clinical indication: Pain; Left-sided; Additional info: Chest pain TECHNIQUE: Imaging protocol: XR of the chest. Views: 1 view. COMPARISON: CR Chest 2V 03/25/2019 5:18 PM FINDINGS: Lungs: Unremarkable. No consolidation. Pleural spaces: Unremarkable. No pleural effusion. No pneumothorax. Heart/Mediastinum: Unremarkable. No cardiomegaly. Bones/joints: Unremarkable. IMPRESSION: 1. No acute findings. 2. Clear lungs and pleural space. 3. No significant change 03/25/2019.
--- NOTE | 2021-02-14 18:11 | EDM.PDOC ---
Scribed by Jaqueline Landry 02/14/21 1811 for Andres Gomez MD <Andres Gomez - Last Filed: 02/14/21 18:39> ED HPI GENERAL MEDICAL PROBLEM - General Chief Complaint: Chest Pain Stated Complaint: AMBULANCE Time Seen by Provider: 02/14/21 17:27 Source of Information: Reports: Patient, EMS, EMS Notes Reviewed, Old Records, Provider (Ethel Garcia NP), RN, RN Notes Reviewed History Limitations: Reports: No Limitations - History of Present Illness INITIAL COMMENTS - FREE TEXT/NARRATIVE: Patient arrives to ED by [facility]. She stated about 3 PM she got chest pain while just sitting. States no radiation. No nausea, vomiting or chest pain now. No shortness of breath. She states she has a hard time to take a deep breath. She has a history of GERD. Onset: Today Duration: Resolved Prior to Arrival Location: Reports: Chest Severity: Severe Improves with: Reports: None Worsens with: Reports: None Associated Symptoms: Reports: No Other Symptoms - Related Data Allergies Allergy/AdvReac Type Severity Reaction Status Date / Time ibuprofen Allergy Intermediate Swelling Verified 02/14/21 17:56 codeine Allergy Nausea Verified 02/14/21 17:56 oseltamivir phosphate Allergy Hallucinati Verified 02/14/21 17:56 [From Tamiflu] ons rosuvastatin [From Crestor] Allergy Nausea Verified 02/14/21 17:57 Home Meds: Home Meds Aspirin [Halfprin] 81 mg PO DAILY 09/08/13 [History] Diltiazem [Tiazac] 120 mg PO DAILY 09/08/13 [History] Meclizine [Antivert] 25 mg PO TID PRN 09/08/13 [History] Docusate Sodium [Colace] 100 mg PO BID PRN #60 cap 02/19/18 [Rx] Alendronate Sodium 35 mg PO WEEKLY 04/01/19 [History] Acetaminophen [Tylenol] 325 mg PO Q6H PRN 04/02/19 [History] Multivitamin [Multi-Vitamin Daily] 0.5 tab PO DAILY 04/02/19 [History] Pravastatin [Pravachol] 20 mg PO DAILY 04/02/19 [History] Past Medical History HEENT History: Reports: Allergic Rhinitis, Impaired Vision Cardiovascular History: Reports: High Cholesterol, Hypertension Respiratory History: Reports: None Gastrointestinal History: Reports: GERD Genitourinary History: Reports: None 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 Musculoskeletal History: Reports: Neck Pain, Chronic Neurological History: Reports: Cerebral Aneurysms Psychiatric History: Reports: None Endocrine/Metabolic History: Reports: None Hematologic History: Reports: None Immunologic History: Reports: None Oncologic (Cancer) History: Reports: None Dermatologic History: Reports: Other (See Below) Other Dermatologic History: rash above eyes - Infectious Disease History Infectious Disease History: Reports: Measles, Mumps - Past Surgical History Head Surgeries/Procedures: Reports: None Other Cardiovascular Surgeries/Procedures: angio seal GI Surgical History: Reports: Lysis of Adhesions Other Neurological Surgeries/Procedures: Craniotomy- November 2014 Musculoskeletal Surgical History: Reports: Other (See Below) Social & Family History - Family History Family Medical History: No Pertinent Family History Oncologic: Reports: Breast, Ovarian - Caffeine Use Caffeine Use: Reports: Coffee, Soda - Living Situation & Occupation Living situation: Reports: with Family ED ROS GENERAL - Review of Systems Review Of Systems: Comprehensive ROS is negative, except as noted in HPI. ED EXAM, GENERAL - Physical Exam Exam: See Below Exam Limited By: No Limitations General Appearance: Alert, WD/WN, No Apparent Distress Eye Exam: Bilateral Eye: Normal Inspection Nose: Normal Inspection, Normal Mucosa, No Blood Throat/Mouth: Normal Inspection, Normal Lips, Normal Voice, No Airway Compromise Head: Atraumatic, Normocephalic Neck: Normal Inspection, Supple, Non-Tender, Full Range of Motion Respiratory/Chest: No Respiratory Distress, Lungs Clear, Normal Breath Sounds, No Accessory Muscle Use, Chest Non-Tender Cardiovascular: Normal Peripheral Pulses, Regular Rate, Rhythm, No Edema, No Gallop, No JVD, No Murmur, No Rub GI/Abdominal: Normal Bowel Sounds, Soft, Non-Tender Back Exam: Normal Inspection Extremities: Normal Inspection, Normal Range of Motion, Non-Tender, No Pedal Edema Neurological: Alert, Oriented, CN II-XII Intact, Normal Cognition, Normal Gait, No Motor/Sensory Deficits Psychiatric: Normal Affect, Normal Mood Skin Exam: Warm, Dry, Intact, Normal Color, No Rash #1 Interpretation EKG Date: 02/14/21 Time: 17:30 Rhythm: Other (sinus rhythm) Rate (Beats/Min): [address]: Normal QRS: RBBB ST-T: Normal QT: Normal Comparison: NA - No Prior EKG Course - Radiology Interpretation Free Text/Narrative:: [facility] [place] - [facility] Final Radiology Report Call: [phone] assistance Online chat: [email or web address] Name: ELENA WAGNER Age: 70Years F Date: 02/14/2021 SSN: -- : [id number] Study: CR CHEST 1V FRONTAL Requesting Physician: ANDRES GOMEZ Images: 1 Addl Studies: Provided Clinical History: chest pain Contrast: Contrast Medium: Contrast Amount: Contrast Method: CONFIDENTIALITY STATEMENT This report is intended only for use by the referring physician, and only in accordance with law. If you received this in error, call [phone]. Page 1 of 1 PROCEDURE INFORMATION: Exam: XR Chest Exam date and time: 02/14/2021 5:40 PM Age: 70 years old Clinical indication: Pain; Left-sided; Additional info: Chest pain TECHNIQUE: Imaging protocol: XR of the chest. Views: 1 view. COMPARISON: CR Chest 2V 03/25/2019 5:18 PM FINDINGS: Lungs: Unremarkable. No consolidation. Pleural spaces: Unremarkable. No pleural effusion. No pneumothorax. Heart/Mediastinum: Unremarkable. No cardiomegaly. Bones/joints: Unremarkable. IMPRESSION: 1. No acute findings. 2. Clear lungs and pleural space. 3. No significant change 03/25/2019. Thank you for allowing us to participate in the care of your patient. Dictated and Authenticated by: Isaac Diego MD 02/14/2021 5:56 PM Central Time ([place] & [place]) - Re-Assessments/Exams Free Text/Narrative Re-Assessment/Exam: 02/14/21 19:00 Care of pt transferred to [facility] at shift change with repeat troponin pending. Departure - Departure Disposition: Home, Self-Care 01 Clinical Impression: Non-cardiac chest pain Gastroesophageal reflux disease Qualifiers: Esophagitis presence: esophagitis presence not specified Qualified Code(s): K21.9 - Gastro-esophageal reflux disease without esophagitis Instructions: Nonspecific Chest Pain, Adult, [id number], Gastroesophageal Reflux Disease, Adult, [id number] Forms: ED Department Discharge Additional Instructions: Clinic follow up home medications as prescribed bland low fat low acid diet follow up if symptoms recurrent, worsening with radiation of pain to neck or jaw <Tory Christine - Last Filed: 02/14/21 19:40> Course - Vital Signs Last Recorded V/S: Last Vital Signs Temp 97.8 F 02/14/21 17:48 Pulse 63 02/14/21 17:48 Resp 16 02/14/21 17:48 BP 140/86 02/14/21 17:48 Pulse Ox 97 02/14/21 17:48 - Orders/Labs/Meds Orders: Active Orders 24 hr Category Date Time Status EKG 12 Lead [EKG Documentation Completion] [] STAT Care 02/14/21 17:28 Active Peripheral IV Care [] . DIRECTED Care 02/14/21 17:28 Active Sodium Chloride 0.9% [Saline Flush] Med 02/14/21 17:27 Active 10 ml FLUSH ASDIRECTED PRN Peripheral IV Insertion Adult [OM.PC] Stat Oth 02/14/21 17:28 Ordered Medication Orders Sodium Chloride (Sodium Chloride 0.9% 10 Ml Syringe) 10 ml FLUSH ASDIRECTED PRN PRN Reason: Keep Vein Open Labs: Laboratory Tests 02/14/21 02/14/21 02/14/21 Range/Units 17:44 17:44 17:44 WBC 6.7 (5.0-10.0) 10^3/uL RBC 4.38 (4.2-5.4) 10^6/uL Hgb 13.0 (12.0-16.0) g/dL Hct 40.8 (37.0-47.0) % MCV 93.2 (80-100) fL MCH 29.7 (27.0-34.0) pg MCHC 31.9 L (33.0-35.0) g/dL Plt Count 221 (150-450) 10^3/uL Neut % (Auto) 45.2 (42.2-75.2) % Lymph % (Auto) 41.9 (20.5-50.1) % [place] % (Auto) 9.6 H (2-8) % Eos % (Auto) 3.0 (1.0-3.0) % Baso % (Auto) 0.3 (0.0-1.0) % PT 10.1 (9.0-12.0) SEC INR 1.0 (0.9-1.2) APTT 23.1 (22.0-34.0) SEC Sodium 142 (136-145) mmol/L Potassium 4.2 (3.5-5.1) mmol/L Chloride 105 (98-107) mmol/L Carbon Dioxide 27 (21-32) mmol/L Anion Gap 14.2 H (7-13) mEq/L BUN 14 (7-18) mg/dL Creatinine 0.82 (0.55-1.02) mg/dL Est Cr Clr Drug Dosing 58.49 mL/min Estimated GFR (MDRD) > 60 BUN/Creatinine Ratio 17.1 (No establ ref range) Glucose 89 (70-99) mg/dL Calcium 9.2 (8.5-10.1) mg/dL Total Bilirubin 0.3 (0.2-1.0) mg/dL AST 18 (15-37) U/L ALT 28 (14-59) U/L Alkaline Phosphatase 51 (46-116) U/L Troponin I High Sens 8 (<=51) pg/mL B-Natriuretic Peptide 34 (0-100) pg/ml Total Protein 7.2 (6.4-8.2) g/dL Albumin 3.6 (3.4-5.0) g/dL Globulin 3.6 Albumin/Globulin Ratio 1.0 Amylase 38 (25-115) U/L 02/14/21 Range/Units 18:55 WBC (5.0-10.0) 10^3/uL RBC (4.2-5.4) 10^6/uL Hgb (12.0-16.0) g/dL Hct (37.0-47.0) % MCV (80-100) fL MCH (27.0-34.0) pg MCHC (33.0-35.0) g/dL Plt Count (150-450) 10^3/uL Neut % (Auto) (42.2-75.2) % Lymph % (Auto) (20.5-50.1) % [place] % (Auto) (2-8) % Eos % (Auto) (1.0-3.0) % Baso % (Auto) (0.0-1.0) % PT (9.0-12.0) SEC INR (0.9-1.2) APTT (22.0-34.0) SEC Sodium (136-145) mmol/L Potassium (3.5-5.1) mmol/L Chloride (98-107) mmol/L Carbon Dioxide (21-32) mmol/L Anion Gap (7-13) mEq/L BUN (7-18) mg/dL Creatinine (0.55-1.02) mg/dL Est Cr Clr Drug Dosing mL/min Estimated GFR (MDRD) BUN/Creatinine Ratio (No establ ref range) Glucose (70-99) mg/dL Calcium (8.5-10.1) mg/dL Total Bilirubin (0.2-1.0) mg/dL AST (15-37) U/L ALT (14-59) U/L Alkaline Phosphatase (46-116) U/L Troponin I High Sens 8 (<=51) pg/mL B-Natriuretic Peptide (0-100) pg/ml Total Protein (6.4-8.2) g/dL Albumin (3.4-5.0) g/dL Globulin Albumin/Globulin Ratio Amylase (25-115) U/L Meds: Medications Generic Name Dose Route Start Last Admin Trade Name Freq PRN Reason Stop Dose Admin Sodium Chloride 10 ml 02/14/21 17:27 Sodium Chloride 0.9% 10 Ml Syringe FLUSH ASDIRECTED PRN Keep Vein Open Departure - Departure Time of Disposition: 19:34 Condition: Good Sepsis Event Note (ED) - Focused Exam Vital Signs: Vital Signs Temp Pulse Resp BP Pulse Ox 02/14/21 17:48 97.8 F 63 16 140/86 97 I have read and agree with the documentation that has been completed regarding this visit. By signing this record, I attest that the documentation was completed in my physical presence and is an accurate record of the encounter.
[2021-02-14 18:26] LABS: ANION GAP 14.2 mEq/L (7-13); CHLORIDE,CL 105 mmol/L (98-107); SODIUM,NA 142 mmol/L (136-145)
[2021-02-14 18:35] LABS: PTT,PARTIAL THROMBOPLSTIN TIME 23.1 SEC (22.0-34.0)
== END 2021-02-14 19:43 | disposition home or self-care (01) ==
LOC: DL.ED 17:19
DX: K21.9 Gastro-esophageal reflux disease without esophagitis (principal); E78.00 Pure hypercholesterolemia, unspecified; I10 Essential (primary) hypertension; I45.10 Unspecified right bundle-branch block; Z88.6 Allergy status to analgesic agent; Z88.5 Allergy status to narcotic agent; Z88.8 Allergy status to other drugs, medicaments and biological substances; Z79.82 Long term (current) use of aspirin; Z79.899 Other long term (current) drug therapy
CPT/HCPCS: 36415; 71045; 80053; 82150; 83880; 84484; 85025; 85610; 85730; 99285-25

== ENCOUNTER 2021-05-03 05:46 | Day surgery (SDC) | payer BC, OTHER ==
[~2021-05-03 05:46] MED LIST: Dextrose 5%-0.45% NaCl 1,000 ML IV SCH; Sodium Chloride 0.9% 10 ML Syringe FLUSH PRN; Sodium Chloride 0.9% 10 ML Syringe FLUSH SCH
[2021-05-03] MEDS ORDERED: Midazolam 1 MG/ML 2 ML SDV IV ONE ×3 (05:47→07:14)
[2021-05-03] MEDS ORDERED: fentaNYL 100 MCG/2 ML SDV IV ONE ×3 (05:47→07:12)
[2021-05-03] MEDS ORDERED: fentaNYL 100 MCG/2 ML SDV ONE (06:12)
[2021-05-03] MEDS ORDERED: Midazolam 1 MG/ML 2 ML SDV ONE (06:12)
[2021-05-03 09:55] VITALS: BP 114/70; PULSE 54
== END 2021-05-03 09:24 | disposition home or self-care (01) ==
LOC: DL.ENDO 05:46
PROVIDERS: ATTEND Internal Medicine Gastroenterology
DX: K25.9 Gastric ulcer, unspecified as acute or chronic, without hemorrhage or perforation (principal); M48.8X2 Other specified spondylopathies, cervical region; E11.9 Type 2 diabetes mellitus without complications; I10 Essential (primary) hypertension; K21.9 Gastro-esophageal reflux disease without esophagitis; M19.90 Unspecified osteoarthritis, unspecified site; M81.0 Age-related osteoporosis without current pathological fracture; H81.09 Meniere's disease, unspecified ear; Z90.89 Acquired absence of other organs; Z98.890 Other specified postprocedural states; Z88.8 Allergy status to other drugs, medicaments and biological substances; Z88.5 Allergy status to narcotic agent
CPT/HCPCS: 87077; J2250; J3010; J7042

== ENCOUNTER 2022-11-27 11:23 | Emergency (ER) | payer MEDICARE, OTHER ==
[2022-11-27] MEDS ORDERED: Sodium Chloride 0.9% 10 ML Syringe FLUSH PRN (11:35)
[2022-11-27 11:51] LABS: BASOPHILS PERCENT AUTO 0.3 % (0.0-1.0); EOSINOPHILS PERCENT AUTO 1.8 % (1.0-3.0); HEMATOCRIT 40.9 % (37.0-47.0); HEMOGLOBIN 13.2 g/dL (12.0-16.0); MEAN CORPUSCULAR HEMOGLOBIN 30.1 pg (27.0-34.0); MEAN CORPUSCULAR HGB CONC 32.3 g/dL (33.0-35.0); MEAN CORPUSCULAR VOLUME 93.4 fL (80-100); MONOCYTES PERCENT AUTO 9.1 % (2-8); NEUTROPHILS PERCENT AUTO 50.8 % (42.2-75.2); PLATELET COUNT,PLT 223 10^3/uL (150-450); RED BLOOD CELL COUNT 4.38 10^6/uL (4.2-5.4); WHITE BLOOD CELL COUNT,WBC 7.1 10^3/uL (5.0-10.0)
[2022-11-27] MEDS ORDERED: Aluminum Hydroxide/Magnesium Hydroxide/Simethicone Susp 30 ML Cup PO ONE (11:51)
[2022-11-27] MEDS ORDERED: Lidocaine 2% Viscous Solution 15 ML UD PO ONE (11:51)
[2022-11-27 11:58] VITALS: BP 125/89; PULSE 62
[2022-11-27 12:10] LABS: INR 0.9 (0.9-1.2); PROTHROMBIN TIME 9.7 SEC (9.0-12.0); PTT,PARTIAL THROMBOPLSTIN TIME 24.8 SEC (22.0-34.0)
[2022-11-27 12:19] LABS: A/G RATIO 0.9; ALBUMIN 3.6 g/dL (3.4-5.0); ANION GAP 13.1 mEq/L (7-13); BILIRUBIN TOTAL 0.3 mg/dL (0.2-1.0); BUN/CREATININE RATIO 19.3 (No establ ref range); CALCIUM 9.6 mg/dL (8.5-10.1); CREATININE 0.88 mg/dL (0.55-1.02); EST CRCL DRUG DOSING (CG) 52.1 mL/min; MAGNESIUM 1.9 mg/dL (1.8-2.4); POTASSIUM,K 4.1 mmol/L (3.5-5.1); PROTEIN TOTAL,TP 7.6 g/dL (6.4-8.2); TSH ULTRASENSITIVE 2.74 uIU/mL (0.36-3.74)
[2022-11-27 13:24] LABS: CORONAVIRUS COVID-19 NAA NEGATIVE (NEGATIVE); INFLUENZA A NAA NEGATIVE (NEGATIVE); INFLUENZA B NAA NEGATIVE (NEGATIVE)
[2022-11-27] MEDS ORDERED: Pantoprazole 40 MG Vial IVPUSH ONE (13:47)
== END 2022-11-27 14:06 | disposition home or self-care (01) ==
LOC: DL.ED 11:23
DX: K21.9 Gastro-esophageal reflux disease without esophagitis (principal); K02.9 Dental caries, unspecified; E78.00 Pure hypercholesterolemia, unspecified; I10 Essential (primary) hypertension; Z86.16 Personal history of COVID-19; Z88.8 Allergy status to other drugs, medicaments and biological substances; Z88.6 Allergy status to analgesic agent; Z88.5 Allergy status to narcotic agent; Z79.82 Long term (current) use of aspirin; Z79.899 Other long term (current) drug therapy; Z20.822 Contact with and (suspected) exposure to COVID-19
CPT/HCPCS: 0240U; 36415; 71045; 80053; 83735; 84443; 84484; 85025; 85610; 85730; 93005; 93010; 96374; 99284; 99285; A9270; C9113; J3490

== ENCOUNTER 2023-08-29 23:41 | Emergency (ER) | payer MEDICARE, OTHER ==
[2023-08-30] MEDS: Iopamidol 755 Mg/ML 100 ML Bottle IVPUSH ONE (00:06)
[2023-08-30 00:14] LABS: BASOPHILS PERCENT AUTO 0.2 % (0.0-1.0); EOSINOPHILS PERCENT AUTO 2.2 % (1.0-3.0); HEMATOCRIT 42.2 % (37.0-47.0); HEMOGLOBIN 13.4 g/dL (12.0-16.0); MEAN CORPUSCULAR HEMOGLOBIN 30.1 pg (27.0-34.0); MEAN CORPUSCULAR HGB CONC 31.8 g/dL (33.0-35.0); MEAN CORPUSCULAR VOLUME 94.8 fL (80-100); MONOCYTES PERCENT AUTO 9.4 % (2-8); NEUTROPHILS PERCENT AUTO 64.2 % (42.2-75.2); PLATELET COUNT,PLT 222 10^3/uL (150-450); RED BLOOD CELL COUNT 4.45 10^6/uL (4.2-5.4); WHITE BLOOD CELL COUNT,WBC 9.2 10^3/uL (5.0-10.0)
[2023-08-30] MEDS: Sodium Chloride 0.9% 1,000 ML IV ONE (00:14)
[2023-08-30] MEDS: Ondansetron 4 MG/2 ML SDV IVPUSH ONE ×2 (00:15→00:44)
[2023-08-30] MEDS: Morphine 4 MG/ML Syringe IVPUSH ONE (00:15)
[2023-08-30 00:33] LABS: ALBUMIN 3.8 g/dL (3.4-5.0); ANION GAP 13.1 mEq/L (7-13); BILIRUBIN TOTAL 0.2 mg/dL (0.2-1.0); BUN/CREATININE RATIO 13.7 (No establ ref range); CALCIUM 9.6 mg/dL (8.5-10.1); CREATININE 0.95 mg/dL (0.55-1.02); EST CRCL DRUG DOSING (CG) 47.58 mL/min; MAGNESIUM 2.1 mg/dL (1.8-2.4); POTASSIUM,K 4.1 mmol/L (3.5-5.1); PROTEIN TOTAL,TP 7.7 g/dL (6.4-8.2)
[2023-08-30 00:35] LABS: INR 0.9 (0.9-1.2); PROTHROMBIN TIME 9.5 SEC (9.0-12.0); PTT,PARTIAL THROMBOPLSTIN TIME 23.2 SEC (22.0-34.0)
[2023-08-30] MEDS: fentaNYL 100 MCG/2 ML SDV IVPUSH ONE (00:52)
[2023-08-30] MEDS ORDERED: Metoclopramide 10 MG/2 ML SDV IM ONE (01:05)
[2023-08-30] MEDS: diphenhydrAMINE 50 MG/ML SDV IVPUSH ONE (01:11)
[2023-08-30] MEDS: Metoclopramide 10 MG/2 ML SDV IVPUSH ONE (01:13)
[2023-08-30 01:18] VITALS: BP 137/77; PULSE 100
== END 2023-08-30 02:55 | disposition home or self-care (01) ==
LOC: DL.ED 23:41
DX: R51.9 Headache, unspecified (principal); M54.2 Cervicalgia; E78.00 Pure hypercholesterolemia, unspecified; I10 Essential (primary) hypertension; Z86.16 Personal history of COVID-19; Z79.899 Other long term (current) drug therapy; Z88.5 Allergy status to narcotic agent; Z88.1 Allergy status to other antibiotic agents; Z88.8 Allergy status to other drugs, medicaments and biological substances
CPT/HCPCS: 36415; 70450; 70496; 70498; 80053; 83735; 85025; 85610; 85730; 93005; 93010; 96361; 96374; 96375; 99284; 99284-25; J1200; J2270; J2405; J2765; J3010; J7030; Q9967

== ENCOUNTER 2024-02-02 15:42 | Emergency (ER) | payer MEDICARE, BC, OTHER ==
[2024-02-02 16:41] VITALS: BP 139/82
[2024-02-02] MEDS: Take Home: Lidocaine 2% Viscous Solution 15 ML UD, 2 Cup Pack PO ONE (17:13)
[2024-02-02] MEDS: Lidocaine 2% Viscous Solution 15 ML UD PO ONE (17:13)
[2024-02-02] MEDS: Bacitracin Oint 1 GM U/D Packet TOP ONE (17:13)
[2024-02-02 17:19] VITALS: PULSE 88
== END 2024-02-02 17:25 | disposition home or self-care (01) ==
LOC: DL.ED 15:42
DX: T20.10XA Burn of first degree of head, face, and neck, unspecified site, initial encounter (principal); T23.101A Burn of first degree of right hand, unspecified site, initial encounter; T23.102A Burn of first degree of left hand, unspecified site, initial encounter; I10 Essential (primary) hypertension; E78.00 Pure hypercholesterolemia, unspecified; Z86.16 Personal history of COVID-19; Z90.89 Acquired absence of other organs; Z88.5 Allergy status to narcotic agent; Z88.6 Allergy status to analgesic agent; Z88.8 Allergy status to other drugs, medicaments and biological substances; Z79.899 Other long term (current) drug therapy; X08.8XXA Exposure to other specified smoke, fire and flames, initial encounter
CPT/HCPCS: 99283; 99284; A9270